=== PATIENT | female | born 1960 | race Caucasian/White ===

== ENCOUNTER 2022-05-25 15:47 | Inpatient (IN) ==
[2022-05-25] MEDS ORDERED: IOPAMIDOL 100 ML BOTTLE IV ONE (15:48)
[2022-05-25] MEDS ORDERED: 0.9 % SODIUM CHLORIDE 1,000 ML IV ONE ×2 (16:16→19:54)
--- NOTE | 2022-05-25 16:16 | Emergency Department Note ---
Nausea/Vomiting/Diarrhea HPI General Chief complaint: Nausea/Vomiting/Diarrhea Stated complaint: Vomiting Time Seen by Provider: 05/25/22 15:49 Source: patient Mode of arrival: ambulatory Limitations: no limitations History of Present Illness HPI Narrative: Narrative: Patient is a 62-year-old female who presents to the emergency department today with complaint of continuation of nausea and vomiting. Patient reports that she had a gastric sleeve surgery a month ago. She recovered from the surgery well. She started to have nausea and vomiting 4 days ago. Patient feels that her nausea and vomiting started after she drinks some "bad coconut milk that was left on the counter last week". She has been seen here in the emergency department on May 22, 2022 as well as May 23, 2022. This is the third visit to the emergency department today. Previous emergency department visits have shown reassuring labs. She had a CT abdomen pelvis scan 2 days ago that did not have any concerning findings. She was given IM Phenergan and had improvement of her symptoms at her last visit to the emergency department and was able to keep down oral fluids. She was discharged home with Phenergan suppositories. Patient reports she has been taking the Phenergan suppositories at home and last dose was approximately 1 hour prior to arrival to the emergency department but she continues to have nausea and occasional vomiting. She has not had any fevers or chills. She describes some mild aching sensation in the e pigastric area. She has not had any cough, chest pain, shortness of breath, or difficulty breathing. She denies any dysuria, urinary frequency, or hesitancy. Related Data Home Medications Medication Instructions Recorded Confirmed omeprazole 20 mg PO DAILY 03/01/19 05/22/22 pen needle, diabetic 31 gauge x #1,200 ea 08/28/20 05/22/22 5/16" (TechLITE Pen Needle) diphenhydramine 25 1 tab PO QHS PRN Pain 04/16/21 05/22/22 mg-acetaminophen 500 mg tablet (Tylenol PM Extra Strength) amlodipine 10 mg tablet 0.5 tab PO BID 05/22/22 05/22/22 apixaban 5 mg tablet (Eliquis) 5 mg PO BID 05/22/22 05/22/22 insulin aspart U-100 100 unit/mL See Protocol subcut TID 05/22/22 05/22/22 (3 mL) subcutaneous pen (Novolog Flexpen U-100 Insulin aspart) insulin glargine 100 unit/mL (3 30 unit subcut BID 05/22/22 05/22/22 mL) subcutaneous pen (Lantus Solostar U-100 Insulin) metoprolol tartrate 50 mg tablet 1 tab PO BID 05/22/22 05/22/22 Previous Rx's Medication Instructions Recorded duloxetine 30 mg capsule,delayed See Rx Instructions .Route 03/01/19 release .COMPLEX #60 caps ondansetron 4 mg disintegrating 4 mg PO Q8H PRN nausea and 05/22/22 tablet vomiting #14 tabs promethazine 25 mg rectal 25 mg KY Q6H PRN nausea and 05/22/22 suppository vomiting #12 ea Allergies Allergy/AdvReac Type Severity Reaction Status Date / Time marijuana (cannabis) AdvReac Nausea Verified 04/20/22 10:06 [marijuana] Paroxetine [From Paxil] AdvReac Shakiness Verified 04/20/22 10:06 Review of Systems ROS ROS Narrative: Narrative: PFSH Narrative Patient History Narrative: Narrative: Medical/Surgical/Family History All Active Problems (Updated 05/25/22 @ 20:28 by CHARLETTE Wiggins) Effusion of knee joint, left (Acute) Nausea & vomiting (Acute) Nausea (Acute) Dehydration (Acute) Obstructive sleep apnea (Chronic) Flank pain (Acute) Diverticulitis (Acute) Abdominal pain (Acute) COPD (chronic obstructive pulmonary disease) (Chronic) Snoring (Chronic) Hypersomnia (Chronic) Anxiety (Acute) Low back pain (Chronic) Acute bacterial sinusitis (Chronic) Increased BMI (Chronic) IBS (irritable bowel syndrome) (Chronic) Bilateral tinnitus (Chronic) Insomnia (Chronic) History of amputation of toe (Chronic) Pain of both hip joints (Chronic ~08/09/20) Pain, joint, shoulder, right (Chronic ~08/09/20) Pain in both feet (Chronic ~08/09/20) 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) Amputated toe (Chronic ~04/18/19) Edema of lower extremity (Chronic ~04/18/19) Osteomyelitis (Chronic ~04/18/19) Plantar fasciitis (Chronic ~04/18/19) Tailors bunion (Chronic ~04/18/19) Lumbar spine pain (Chronic ~04/18/19) Arthropathy (Chronic ~04/18/19) Asthma (Chronic ~04/18/19) Allergic rhinitis (Chronic ~04/18/09) Essential hypertension (Chronic ~04/18/19) 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 (Chronic ~04/18/19) Adjustment disorder with depressed mood (Chronic ~04/18/19) Obesity (Chronic ~04/18/19) Diabetic ketoacidosis (Chronic ~04/18/19) Chronic cough (Chronic) Finger sprain (Chronic) Fibromyalgia (Chronic) Insulin dependent diabetes mellitus (Chronic) Chronic low back pain (Chronic) Neuropathy (Chronic) GERD (gastroesophageal reflux disease) (Chronic ~04/18/19) H/O hysterectomy for benign disease (Chronic) Hx of cholecystectomy (Chronic) Peripheral edema (Chronic) Microscopic hematuria (Chronic) Medical History Acute bacterial sinusitis Adjustment disorder with depressed mood (~04/18/19) Allergic rhinitis (~04/18/09) Amputated toe (~04/18/19) Arthropathy (~04/18/19) Asthma (~04/18/19) Bilateral tinnitus Chronic cough Chronic low back pain COPD (chronic obstructive pulmonary disease) Diabetic ketoacidosis (~04/18/19) Edema of lower extremity (~04/18/19) Essential hypertension (~04/18/19) Fibromyalgia Finger sprain GERD (gastroesophageal reflux disease) (~04/18/19) History of amputation of toe Hypersomnia IBS (irritable bowel syndrome) Increased BMI Insomnia Insulin dependent diabetes mellitus Low back pain Lumbar spine pain (~04/18/19) Microscopic hematuria Multiple complications of type 2 diabetes mellitus (~04/18/19) 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 (~04/18/19) Obesity (~04/18/19) Obstructive sleep apnea Osteomyelitis (~04/18/19) Pain in both feet (~08/09/20) Pain of both hip joints (~08/09/20) Pain, joint, shoulder, right (~08/09/20) Peripheral edema Plantar fasciitis (~04/18/19) Snoring Tailors bunion (~04/18/19) Surgical History History of bilateral cataract extraction History of cervical biopsy History of endometrial ablation History of tonsillectomy History of total abdominal hysterectomy and bilateral salpingo-oophorectomy (~03/22/19) History of tubal ligation Hx of cholecystectomy Family History Other No pertinent family history Social History Smoking Status: Former smoker Alcohol Intake Frequency: a few times a week Substance Use: does not use Exam Narrative Narrative: Narrative: General Limitations: no limitations General appearance: Present alert, in no apparent distress and obese Eye Eye: Present normal appearance; Absent scleral icterus ENT ENT: Present mucous membranes dry; Absent nasal congestion or hoarse voice Neck Neck: Present normal inspection and full ROM; Absent lymphadenopathy Chest Chest: Present symmetric chest wall rise Respiratory Respiratory: Present normal lung sounds bilaterally; Absent respiratory distress, rales/crackles, wheezes or accessory muscle use Cardiovascular Cardiovascular: Present regular rate, normal rhythm and normal heart sounds Adbominal Abdominal: Present soft, tenderness (Mild epigastric tenderness with palpation.) and normal bowel sounds; Absent distention, rebound, mass, pulsatile mass or hernia Extremities Extremities: Present normal inspection, full ROM and normal capillary refill; Absent cyanosis Back Back: Present full ROM; Absent CVA tenderness (R) or CVA tenderness (L) Neurological Neurological: Present alert and oriented X3 Psychiatric Psychiatric: Present normal affect and normal mood Skin Skin: Present warm (WNL), dry and normal color Course Vital Signs Vital signs: Vital Signs Temperature 97.3 F 05/25/22 15:51 Pulse Rate 96 H 05/25/22 15:51 Respiratory Rate 18 05/25/22 15:51 Blood Pressure 147/87 05/25/22 15:51 Pulse Oximetry (%) 100 05/25/22 15:51 Oxygen Delivery Method 05/25/22 15:51 Temperature 97.3 F 05/25/22 15:51 Pulse Rate 82 05/25/22 19:43 Respiratory Rate 18 05/25/22 15:51 Blood Pressure 147/87 05/25/22 15:51 Pulse Oximetry (%) 96 05/25/22 19:43 Oxygen Delivery Method 05/25/22 15:51 [facility] Narrative Medical decision making narrative: Narrative: Patient is a 62-year-old female who returns to the emergency department today with continuation of nausea and vomiting. Her symptoms began 4 days ago and she has been seen here in the emergency department on 2 other occasions and this is her third visit here regarding this issue. She is continuing to have nausea and vomiting despite home use of antiemetics. She has had previous laboratory work- up and including abdominal CT scan with contrast 2 days ago that was rather all reassuring for acute intra-abdominal process. Today IV was started for hydration with IV fluids and patient receiving 1 L normal saline here in the emergency department. Patient had taken promethazine prior to arrival to the emergency department. Patient was given IV diphenhydramine for nausea. This seemed to help her symptoms and after patient receiving IV fluids and the diphenhydramine she was no longer having any pain in the epigastric area. She was having some mild nausea. She did not have any vomiting. Patient's BUN is increased over the last 3 days or 3 days ago was 16 and is now 30. Her ixzyi-ql-wihu creatinine is also increased from 1.03 days ag o to 1.8 today. This is likely related to dehydration. Patient's bovii-jd-jatr glucose is 347. Patient's bicarb normal do not suspect patient having DKA today. Ordered 10 units of IV insulin to be given today for the hyperglycemia. Patient's blood sugar recheck after administration of 10 units of IV insulin today for elevated blood sugar was 157. Patient's oaxwh-mz-srzk troponin minimally elevated at 0.10. Patient is not experiencing any chest pain or dyspnea. Repeat yjevw-pu-akhd troponin today at 1727 is normal at 0.03. Given the patient's acute dehydration with unable to keep down fluid and failed outpatient antiemetic therapy would recommend this patient be considered for hospital admission today for IV fluids for hydration and monitoring of renal function. I was able to speak with hospitalist today at [facility] and spoke with Dr. Floyd who had recommended to contact patient's surgical center who did the gastric sleeve last month to find out if there are any other concerns or imaging that may be necessary to consider for this patient with her symptoms and continuation of the nausea and vomiting. Patient indicates that she had surgery in [facility] with Dr. Hannah. Dr. Floyd also recommended to evaluate with beta hydroxybutyrate and a venous blood gas to ensure there is no findings of DKA. Patient's VBG shows normal pH at 7.39, normal HCO3 at 27.4. Lactic acid today is 2.4. Beta hydroxybutyrate minimally elevated at 0.49. I was able to speak with Malika Henry, RN who is the aftercare surgical supervising nurse for Dr. Hannah. She was available by phone today and she reports that Dr. Hannah is not currently available and is out of the [place]. She would recommend that patient receive IV fluids for hydration and that most likely would not have a leak or problem with surgery given that she has normal vital signs without tachycardia, febrile, or severe abdominal pain. I was able to speak with Dr. Carrera, general surgeon here at [facility]. He is a general surgeon and does not treat bariatric patients and therefore he recommended to consult with bariatric surgeon in [facility] today. Dr. Floyd and Dr. Carrera had both recommended to proceed with oral contrast abdomen pelvis today for further evaluation rather than the IV contrast that was done 2 days ago. The abdomen pelvis CT scan with oral contrast was ordered, however before doing this and proceeding forward with the CT scan today I was able to consult with bariatric surgeon at the [facility] and spoke with Dr. Waddell today. Dr. Waddell felt that the patient would most likely not need the abdomen and pelvis CT scan with oral contrast given that she had a recent IV abdomen contrast CT. He provided reassurance indicating that patients with gastric sl eeve can often become dehydrated that leads to nausea and vomiting. He recommended to admit patient for hydration and most likely this will fix the patient's problem with resolving the dehydration for the patient. He also indicates that malnutrition can also do this for patients with gastric sleeves and to consider potential TPN if patient does not start to have improvement with IV hydration. He also did recommend checking thiamine or treating empirically if there is any consideration of possible malnutrition after the surgery. He did state that there would be nothing surgical to consider at this time given that she does not have any tachycardia, pain, or fever and his most significant concern would be if patient had a leak from the gastric sleeve which without her having the symptoms described above that most likely she does not have this going on. I was able to speak with Dr. Floyd again today and relayed information that the specialist surgeon had recommended not needing the oral CT scan. Dr. Floyd would like to continue to proceed with oral contrast CT scan before consideration of hospital admission today. The CT scan was ordered with oral contrast. A second liter of IV normal saline was ordered today in the emergency department for hydration. She was given 4 mg of ondansetron for nausea and patient is currently in room E2 drinking oral contrast to proceed with the abdomen pelvis CT scan. Due to shift change Dr. Sorenson will assume care at 2029 for this patient. Lab Data Result diagrams: 05/25/22 16:37 Labs: Lab Results 05/25/22 05/25/22 05/25/22 Range/Units 16:36 16:37 16:38 WBC 8.9 (4.5-11.0) K/mcL RBC 5.66 H (3.59-5.38) M/mcL Hgb 14.6 (11.2-15.7) g/dL Hct 45.1 H (34.1-44.9) % POC Hct 48.0 (36-48) MCV 79.7 L (80.0-100.0) fL MCH 25.8 L (26.0-34.0) pg MCHC 32.4 (31.0-36.0) g/dL RDW 15.7 H (11.5-14.5) % Plt Count 262 (140-440) K/mcL MPV 10.3 (8.8-12.5) fL Immature Gran % (Auto) 0.2 (0.0-0.5) % Neut % (Auto) 73.5 (38.0-78.0) % Lymph % (Auto) 20.9 (15.5-49.0) % Gibson % (Auto) 5.1 (1.0-12.0) % Eos % (Auto) 0.1 (0.0-7.0) % Baso % (Auto) 0.2 (0.0-2.0) % Lymph # (Auto) 1.85 (1.50-4.80) K/mcL Gibson # (Auto) 0.45 (0.10-0.90) K/mcL Eos # (Auto) 0.01 (0.00-0.70) K/mcL Baso # (Auto) 0.02 (0.00-0.30) K/mcL Immature Gran # 0.02 (0.00-0.05) K/mcl Absolute Neutrophils 6.51 (1.80-8.00) K/mcL POC VBG pH (7.32-7.42) POC VBG pCO2 at Temp (41-51) POC VBG pO2 (25-40) POC VBG HCO3 (24-28) POC VBG Total CO2 (25-29) POC Venous O2 Sat (40-70) POC VBG Base Excess (-2-2) VBG Lactic Acid (0.5-2) POC Sodium 134 (133-145) POC Potassium 3.2 L (3.3-5.1) POC Chloride 96 (96-108) POC Total CO2 24.0 (22-30) POC BUN 30 H (6-20) POC Creatinine 1.8 H (0.6-1.2) POC Glucose 347 H (70-105) POC WB Ioniz Calcium 1.13 L (1.16-1.32) Total Bilirubin 0.6 (0.1-1.0) mg/dL Direct Bilirubin < 0.2 (0-0.3) mg/dL AST 55 H (<32) U/L ALT 35 (<40) U/L Alkaline Phosphatase 104 (39-117) U/L Total Protein 7.3 (5.9-8.4) gm/dL Albumin 3.7 (3.2-5.2) gm/dL Globulin 3.6 (2.2-3.7) gm/dL Lipase 11 (7-60) U/L Beta-Hydroxybutyrate (<0.27) mmol/L POC Troponin I (0.00-0.08) 05/25/22 05/25/22 05/25/22 Range/Units 16:42 17:27 18:23 WBC (4.5-11.0) K/mcL RBC (3.59-5.38) M/mcL Hgb (11.2-15.7) g/dL Hct (34.1-44.9) % POC Hct (36-48) MCV (80.0-100.0) fL MCH (26.0-34.0) pg MCHC (31.0-36.0) g/dL RDW (11.5-14.5) % Plt Count (140-440) K/mcL MPV (8.8-12.5) fL Immature Gran % (Auto) (0.0-0.5) % Neut % (Auto) (38.0-78.0) % Lymph % (Auto) (15.5-49.0) % Gibson % (Auto) (1.0-12.0) % Eos % (Auto) (0.0-7.0) % Baso % (Auto) (0.0-2.0) % Lymph # (Auto) (1.50-4.80) K/mcL Gibson # (Auto) (0.10-0.90) K/mcL Eos # (Auto) (0.00-0.70) K/mcL Baso # (Auto) (0.00-0.30) K/mcL Immature Gran # (0.00-0.05) K/mcl Absolute Neutrophils (1.80-8.00) K/mcL POC VBG pH (7.32-7.42) POC VBG pCO2 at Temp (41-51) POC VBG pO2 (25-40) POC VBG HCO3 (24-28) POC VBG Total CO2 (25-29) POC Venous O2 Sat (40-70) POC VBG Base Excess (-2-2) VBG Lactic Acid (0.5-2) POC Sodium (133-145) POC Potassium (3.3-5.1) POC Chloride (96-108) POC Total CO2 (22-30) POC BUN (6-20) POC Creatinine (0.6-1.2) POC Glucose (70-105) POC WB Ioniz Calcium (1.16-1.32) Total Bilirubin (0.1-1.0) mg/dL Direct Bilirubin (0-0.3) mg/dL AST (<32) U/L ALT (<40) U/L Alkaline Phosphatase (39-117) U/L Total Protein (5.9-8.4) gm/dL Albumin (3.2-5.2) gm/dL Globulin (2.2-3.7) gm/dL Lipase (7-60) U/L Beta-Hydroxybutyrate 0.49 H (<0.27) mmol/L POC Troponin I 0.10 H 0.03 (0.00-0.08) 05/25/22 Range/Units 18:29 WBC (4.5-11.0) K/mcL RBC (3.59-5.38) M/mcL Hgb (11.2-15.7) g/dL Hct (34.1-44.9) % POC Hct (36-48) MCV (80.0-100.0) fL MCH (26.0-34.0) pg MCHC (31.0-36.0) g/dL RDW (11.5-14.5) % Plt Count (140-440) K/mcL MPV (8.8-12.5) fL Immature Gran % (Auto) (0.0-0.5) % Neut % (Auto) (38.0-78.0) % Lymph % (Auto) (15.5-49.0) % Gibson % (Auto) (1.0-12.0) % Eos % (Auto) (0.0-7.0) % Baso % (Auto) (0.0-2.0) % Lymph # (Auto) (1.50-4.80) K/mcL Gibson # (Auto) (0.10-0.90) K/mcL Eos # (Auto) (0.00-0.70) K/mcL Baso # (Auto) (0.00-0.30) K/mcL Immature Gran # (0.00-0.05) K/mcl Absolute Neutrophils (1.80-8.00) K/mcL POC VBG pH 7.39 (7.32-7.42) POC VBG pCO2 at Temp 44.8 (41-51) POC VBG pO2 22 L (25-40) POC VBG HCO3 27.4 (24-28) POC VBG Total CO2 29.0 (25-29) POC Venous O2 Sat 36.0 L (40-70) POC VBG Base Excess 3.0 H (-2-2) VBG Lactic Acid 2.4 H (0.5-2) POC Sodium (133-145) POC Potassium (3.3-5.1) POC Chloride (96-108) POC Total CO2 (22-30) POC BUN (6-20) POC Creatinine (0.6-1.2) POC Glucose (70-105) POC WB Ioniz Calcium (1.16-1.32) Total Bilirubin (0.1-1.0) mg/dL Direct Bilirubin (0-0.3) mg/dL AST (<32) U/L ALT (<40) U/L Alkaline Phosphatase (39-117) U/L Total Protein (5.9-8.4) gm/dL Albumin (3.2-5.2) gm/dL Globulin (2.2-3.7) gm/dL Lipase (7-60) U/L Beta-Hydroxybutyrate (<0.27) mmol/L POC Troponin I (0.00-0.08) Discharge Plan Patient/Caregiver Discharge Instructions Pt seen by CAND[facility] CUTTER [facility]/PA only: No Clinical Impression: Dehydration, Nausea & vomiting Patient Disposition: Still a Patient Follow up with: Dheeraj Tripp ARNP [Primary Care Provider] - Prescriptions: No Action (DME) pen needle, diabetic [TechLITE Pen Needle] 31 gauge x 5/16" needle See Rx Instructions .ROUTE .MEDSUPPLY Qty: 1200 Rx Instructions: As directed omeprazole 20 mg PO DAILY duloxetine 30 mg capsule,delayed release(DR/EC) See Rx Instructions .ROUTE .COMPLEX Qty: 60 0RF Dose Instruction: 1 cap PO qAM x 7 days, then 2 caps PO qAM thereafter ; Rx Instructions: 1 cap PO qAM x 7 days, then 2 caps PO qAM thereafter diphenhydramine-acetaminophen [Tylenol PM Extra Strength] 25-500 mg tablet 1 tab PO QHS PRN (Reason: Pain) amlodipine 10 mg tablet 0.5 tab PO BID metoprolol tartrate 50 mg tablet 1 tab PO BID insulin aspart U-100 [Novolog Flexpen U-100 Insulin] 100 unit/mL (3 mL) insulin pen See Protocol SUBCUT TID Protocol: Insulin Sliding Scale, Med Condition: HUMALOG/NOVALOG SC SLIDING Dose/Route: SCALE Condition: FSBS < 70 Dose/Route: Give 4 Oz juice, or 15gm oral Instruction: Glucose, or 25ml D50W IV if Dose/Route: unable to take PO. Recheck in Instruction: 15 min and repeat if FSBS < 70 Condition: FSBS 71-140 Dose/Route: NO COVERAGE Condition: FSBS 141-170 Dose/Route: 2 UNITS Condition: FSBS 171-200 Dose/Route: 4 UNITS Condition: FSBS 201-250 Dose/Route: 6 UNITS Condition: FSBS 251-300 Dose/Route: 8 UNITS Condition: FSBS 301-350 Dose/Route: 10 UNITS Condition: FSBS 351-400 Dose/Route: 12 UNITS Condition: FSBS > 400 Dose/Route: 14 UNITS; REPEAT Q2H X2 Instruction: CONTINUE FOLLOWING SLIDING Condition: SCALE; IF STILL > 400; CALL Dose/Route: PHYSICIAN Label Comments: [NO ORIGINAL SIG] insulin glargine [Lantus Solostar U-100 Insulin] 100 unit/mL (3 mL) insulin pen 30 unit subcut BID Eliquis 5 mg Tablet 5 mg PO BID ondansetron 4 mg tablet,disintegrating 4 mg PO Q8H PRN (Reason: nausea and vomiting) Qty: 14 0RF promethazine 25 mg suppository 25 mg KY Q6H PRN (Reason: nausea and vomiting) Qty: 12 0RF
[2022-05-25] MEDS ORDERED: diphenhydrAMINE 50 MG/ML VIAL IV ONE (16:35)
[2022-05-25 16:43] LABS: POC Calcium, Ionized 1.13 (1.16-1.32); POC Creatinine 1.8 (0.6-1.2); POC Potassium 3.2 (3.3-5.1)
[2022-05-25] MEDS ORDERED: INSULIN REGULAR, HUMAN 1 UNIT/0.01 ML UNIT IV ONE (17:06)
[2022-05-25 17:31] LABS: Basophils # (Auto) 0.02 K/mcL (0.00-0.30); Basophils % (Auto) 0.2 % (0.0-2.0); Eosinophils # (Auto) 0.01 K/mcL (0.00-0.70); Eosinophils % (Auto) 0.1 % (0.0-7.0); Hematocrit 45.1 % (34.1-44.9); Hemoglobin 14.6 g/dL (11.2-15.7); Lymphocytes # (Auto) 1.85 K/mcL (1.50-4.80); Lymphocytes % (Auto) 20.9 % (15.5-49.0); Mean Cell Volume 79.7 fL (80.0-100.0); Mean Corpuscular HGB Conc 32.4 g/dL (31.0-36.0); Mean Platelet Volume 10.3 fL (8.8-12.5); Monocytes # (Auto) 0.45 K/mcL (0.10-0.90); Monocytes % (Auto) 5.1 % (1.0-12.0); Neutrophils % (Auto) 73.5 % (38.0-78.0); Platelet Count 262 K/mcL (140-440); RBC 5.66 M/mcL (3.59-5.38); Red Cell Distribution Width 15.7 % (11.5-14.5); WBC 8.9 K/mcL (4.5-11.0)
[2022-05-25 17:43] LABS: ALT/SGPT 35 U/L (<40); AST/SGOT 55 U/L (<32); Albumin 3.7 gm/dL (3.2-5.2); Alkaline Phosphatase 104 U/L (39-117); Bilirubin,Direct < 0.2 mg/dL (0-0.3); Bilirubin,Total 0.6 mg/dL (0.1-1.0); Globulin 3.6 gm/dL (2.2-3.7)
[2022-05-25 19:42] LABS: Beta Hydroxybutyrate 0.49 mmol/L (<0.27)
[2022-05-25] MEDS ORDERED: ONDANSETRON 4 MG/2 ML VIAL IV ONE (19:53)
--- NOTE | 2022-05-25 20:49 | Cat Scan Report ---
INDICATION: N/V Recent gastric sleeve. Assess for leak. COMPARISON: Previous examination dated 05/23/2022 TECHNIQUE: Axial images were obtained through the abdomen and pelvis. Sagittally and coronally reformatted images. 80 mL Isovue 370 injected intravenously. Oral contrast material was given FINDINGS: Lung bases:Negative. No pulmonary parenchymal nodule. No pleural fluid or pericardial fluid Liver:Negative. No focal intrahepatic mass. No focal abnormality. Liver contour is smooth. No evidence for cirrhosis Gallbladder, bilary: Previous cholecystectomy. No dilated bile ducts Spleen:No splenomegaly. Normal enhancement of splenic and portal veins. Pancreas:No pancreatic mass. No peripancreatic abnormality Adrenal glands:Negative Kidneys,ureters,bladder:No solid renal mass. No hydronephrosis. No obstructing or nonobstructing calculi. There are benign renal cysts, unchanged No hydroureter. No ureteral calculus. Urinary bladder is distended. No bladder calculi Gastrointestinal:Patient was only able to drink a small amount of contrast material due to nausea. There is contrast material within the stomach. Patient has undergone prior gastric sleeve procedure. There is no pneumoperitoneum. No contrast extravasation. There is no evidence for anastomotic leak. There is no obstruction Negative small bowel. No mechanical small bowel obstruction. No bowel wall thickening. No focal abnormality. Colon is negative. There is sigmoid diverticulosis. No evidence for diverticulitis. There is some increased contrast within the distal sigmoid and rectal lumen. This patient does not give a history of gastrointestinal hemorrhage and a GI bleed study was not performed. There is no detectable colonic mass. Appendix: The appendix is negative Vascular:Negative abdominal aorta. Superior mesenteric artery and celiac trunk are normal. Normal opacification of the inferior mesenteric artery Lymphatic:No retroperitoneal or mesenteric adenopathy Mesentery, peritoneum: There is no pneumoperitoneum. No intra-abdominal abscess. No free intraperitoneal fluid Reproductive:Previous hysterectomy. No adnexal mass Musculoskeletal:No lumbar compression fractures. Sacrum and pelvis are negative. No hip fracture. There is small umbilical hernia containing only fat IMPRESSION: 1. Previous gastric sleeve procedure. There is no obstruction. There is no leak at the suture line. No pneumoperitoneum or contrast material within the peritoneal space. 2. There is no intra-abdominal abscess 3. Sigmoid diverticulosis. No evidence for diverticulitis. 4. Small umbilical hernia containing only fat 5. Previous cholecystectomy. Previous hysterectomy The exam was performed using radiation dose optimization techniques including, but not limited to, automated exposure control, adjustment of the mA and/or kV according to patient size and use of iterative reconstruction technique. Interpreted and Authenticated by: Napoleon Herman 05/25/22
[2022-05-25] MEDS ORDERED: DEXTROSE 31 GM ORAL.SUSP PO PRN ×2 (20:56→21:58)
[2022-05-25] MEDS ORDERED: DEXTROSE 50% 50 ML VIAL IV PRN ×2 (20:56→21:58)
[2022-05-25] MEDS ORDERED: INSULIN LISPRO 1 UNIT/0.01 ML UNIT SQ SCH (21:00)
--- NOTE | 2022-05-25 21:01 | Internal Med History&Physical ---
HPI History of Present Illness Patient information: Note initiated : 05/25/22 at 8:58 pm Service Date, if different from initiated Date: [] Patient: Ida Jansen a 62 y/o F admitted on for Vomiting. Chief Complaint: [] History of present illness: Ms. Jansen is a 62 year old F Female who presents to the ED with nausea vomiting. Patient had a gastric sleeve surgery in [place] on April 23. She says she was doing well at about 4 days ago which started helping nausea vomiting after she drank some which she said was bad coconut milk. This is her third visit to the ED in 4 days. Patient has been on a pured diet and has been doing relatively well with that occasionally will have a hard time going down but otherwise she has been stable until 4 days ago. She says she left of some coconut water or milk out on the table for a few days and when she drank it it was rancid and it made her nauseous and started vomiting and then since then she had hard time with any liquid. She had a CT abdomen pelvis done but it was was done without oral contrast did not and did not show anything obvious. CT with oral contrast does not show any obstruction or leak at the suture line or pneumoperitoneum. No acute abnormalities. Patient says she is unable to keep down any fluids. She has been taking Phenergan suppositories. She describes some achiness in the epigastric area. ED tried to get a hold of her surgeon in [facility] but he is out of town. Case discussed with bariatric surgeon Dr. Schreiber at [place] who did not see anything concerning and felt that she just needed to be hydrated and that the dehydration is likely causing her nausea vomiting. He states usually just with hydration her symptoms will resolve. She got a DVT after right foot surgery in September Review of Systems: Pertinent positives as above. Denies headache/fever/chills/chest or abdominal pain/cough/dyspnea/diarrhea. Remaining 10 point review of system reviewed negative PFSH PFSH All Active Problems (Updated 05/25/22 @ 20:28 by CHARLETTE Wiggins) Effusion of knee joint, left (Acute) Nausea & vomiting (Acute) Nausea (Acute) Dehydration (Acute) Obstructive sleep apnea (Chronic) Flank pain (Acute) Diverticulitis (Acute) Abdominal pain (Acute) COPD (chronic obstructive pulmonary disease) (Chronic) Snoring (Chronic) Hypersomnia (Chronic) Anxiety (Acute) Low back pain (Chronic) Acute bacterial sinusitis (Chronic) Increased BMI (Chronic) IBS (irritable bowel syndrome) (Chronic) Bilateral tinnitus (Chronic) Insomnia (Chronic) History of amputation of toe (Chronic) Pain of both hip joints (Chronic ~08/09/20) Pain, joint, shoulder, right (Chronic ~08/09/20) Pain in both feet (Chronic ~08/09/20) 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) Amputated toe (Chronic ~04/18/19) Edema of lower extremity (Chronic ~04/18/19) Osteomyelitis (Chronic ~04/18/19) Plantar fasciitis (Chronic ~04/18/19) Tailors bunion (Chronic ~04/18/19) Lumbar spine pain (Chronic ~04/18/19) Arthropathy (Chronic ~04/18/19) Asthma (Chronic ~04/18/19) Allergic rhinitis (Chronic ~04/18/09) Essential hypertension (Chronic ~04/18/19) 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 (Chronic ~04/18/19) Adjustment disorder with depressed mood (Chronic ~04/18/19) Obesity (Chronic ~04/18/19) Diabetic ketoacidosis (Chronic ~04/18/19) Chronic cough (Chronic) Finger sprain (Chronic) Fibromyalgia (Chronic) Insulin dependent diabetes mellitus (Chronic) Chronic low back pain (Chronic) Neuropathy (Chronic) GERD (gastroesophageal reflux disease) (Chronic ~04/18/19) H/O hysterectomy for benign disease (Chronic) Hx of cholecystectomy (Chronic) Peripheral edema (Chronic) Microscopic hematuria (Chronic) Medical History Acute bacterial sinusitis Adjustment disorder with depressed mood (~04/18/19) Allergic rhinitis (~04/18/09) Amputated toe (~04/18/19) Arthropathy (~04/18/19) Asthma (~04/18/19) Bilateral tinnitus Chronic cough Chronic low back pain COPD (chronic obstructive pulmonary disease) Diabetic ketoacidosis (~04/18/19) Edema of lower extremity (~04/18/19) Essential hypertension (~04/18/19) Fibromyalgia Finger sprain GERD (gastroesophageal reflux disease) (~04/18/19) History of amputation of toe Hypersomnia IBS (irritable bowel syndrome) Increased BMI Insomnia Insulin dependent diabetes mellitus Low back pain Lumbar spine pain (~04/18/19) Microscopic hematuria Multiple complications of type 2 diabetes mellitus (~04/18/19) 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 (~04/18/19) Obesity (~04/18/19) Obstructive sleep apnea Osteomyelitis (~04/18/19) Pain in both feet (~08/09/20) Pain of both hip joints (~08/09/20) Pain, joint, shoulder, right (~08/09/20) Peripheral edema Plantar fasciitis (~04/18/19) Snoring Tailors bunion (~04/18/19) Surgical History History of bilateral cataract extraction History of cervical biopsy History of endometrial ablation History of tonsillectomy History of total abdominal hysterectomy and bilateral salpingo-oophorectomy (~03/22/19) History of tubal ligation Hx of cholecystectomy Family History Other No pertinent family history Social History occupational status: 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 sexually active: No physical activity: none smoking status: Former smoker quit date: 06/22/97 alcohol intake frequency: a few times a week substance use type: does not use seatbelt use: always working smoke detector in home: Yes firearms in home: Yes MEDS/ALLERGIES Home Medications and Allergies Home Medications Medication Instructions Recorded Confirmed Type duloxetine 30 mg capsule,delayed See Rx Instructions .Route 03/01/19 05/22/22 Rx release .COMPLEX #60 caps omeprazole 20 mg PO DAILY 03/01/19 05/22/22 History pen needle, diabetic 31 gauge x #1,200 ea 08/28/20 05/22/22 History 5/16" (TechLITE Pen Needle) diphenhydramine 25 1 tab PO QHS PRN Pain 04/16/21 05/22/22 History mg-acetaminophen 500 mg tablet (Tylenol PM Extra Strength) amlodipine 10 mg tablet 0.5 tab PO BID 05/22/22 05/22/22 History apixaban 5 mg tablet (Eliquis) 5 mg PO BID 05/22/22 05/22/22 History insulin aspart U-100 100 unit/mL See Protocol subcut TID 05/22/22 05/22/22 History (3 mL) subcutaneous pen (Novolog Flexpen U-100 Insulin aspart) insulin glargine 100 unit/mL (3 30 unit subcut BID 05/22/22 05/22/22 History mL) subcutaneous pen (Lantus Solostar U-100 Insulin) metoprolol tartrate 50 mg tablet 1 tab PO BID 05/22/22 05/22/22 History ondansetron 4 mg disintegrating 4 mg PO Q8H PRN nausea and 05/22/22 Rx tablet vomiting #14 tabs promethazine 25 mg rectal 25 mg NH Q6H PRN nausea and 05/22/22 Rx suppository vomiting #12 ea Allergies Allergy/AdvReac Type Severity Reaction Status Date / Time marijuana (cannabis) AdvReac Nausea Verified 04/20/22 10:06 [marijuana] Paroxetine [From Paxil] AdvReac Shakiness Verified 04/20/22 10:06 EXAM Constitutional Vitals: Temp Pulse Resp BP Pulse Ox O2 Del Method 97.3 F 87 18 211/77 100 05/25/22 15:51 05/25/22 20:56 05/25/22 15:51 05/25/22 20:56 05/25/22 20:56 05/25/22 20:56 Exam: General: Alert, Awake, No acute Distress, obese Eyes/N/T: EOMI, PERRL, MM Head/Neck: neck supple, normocephalic atraumatic CV: RRR, No murmurs, normal s1/s2 Pulm: Clear b/l, no wheezing/rhonchi/rales Abd: soft, nontender, +BS x4 Ext: no clubbing/cyanosis, mild b/l LE edema Neuro: Alert, no focal deficits, moves all extremities, CN 2-12 grossly intact, sensations intact b/l upper/lower Skin: warm/dry DATA Data Completed and Pending Labs: Labs from last 24 hours 05/25/22 05/25/22 05/25/22 19:55 18:29 18:23 WBC RBC Hgb Hct POC Hct MCV MCH MCHC RDW Plt Count MPV Immature Gran % (Auto) Neut % (Auto) Lymph % (Auto) Latimer % (Auto) Eos % (Auto) Baso % (Auto) Lymph # (Auto) Latimer # (Auto) Eos # (Auto) Baso # (Auto) Immature Gran # Absolute Neutrophils POC VBG pH 7.39 POC VBG pCO2 at Temp 44.8 POC VBG pO2 22 L POC VBG HCO3 27.4 POC VBG Total CO2 29.0 POC Venous O2 Sat 36.0 L POC VBG Base Excess 3.0 H VBG Lactic Acid 2.4 H POC Sodium POC Potassium POC Chloride POC Total CO2 POC BUN POC Creatinine POC Glucose POC WB Ioniz Calcium Total Bilirubin Direct Bilirubin AST ALT Alkaline Phosphatase Total Protein Albumin Globulin Lipase Vitamin B1 Pending Beta-Hydroxybutyrate 0.49 H POC Troponin I 05/25/22 05/25/22 05/25/22 17:27 16:42 16:38 WBC RBC Hgb Hct POC Hct 48.0 MCV MCH MCHC RDW Plt Count MPV Immature Gran % (Auto) Neut % (Auto) Lymph % (Auto) Latimer % (Auto) Eos % (Auto) Baso % (Auto) Lymph # (Auto) Latimer # (Auto) Eos # (Auto) Baso # (Auto) Immature Gran # Absolute Neutrophils POC VBG pH POC VBG pCO2 at Temp POC VBG pO2 POC VBG HCO3 POC VBG Total CO2 POC Venous O2 Sat POC VBG Base Excess VBG Lactic Acid POC Sodium 134 POC Potassium 3.2 L POC Chloride 96 POC Total CO2 24.0 POC BUN 30 H POC Creatinine 1.8 H POC Glucose 347 H POC WB Ioniz Calcium 1.13 L Total Bilirubin Direct Bilirubin AST ALT Alkaline Phosphatase Total Protein Albumin Globulin Lipase Vitamin B1 Beta-Hydroxybutyrate POC Troponin I 0.03 0.10 H 05/25/22 05/25/22 16:37 16:36 WBC 8.9 RBC 5.66 H Hgb 14.6 Hct 45.1 H POC Hct MCV 79.7 L MCH 25.8 L MCHC 32.4 RDW 15.7 H Plt Count 262 MPV 10.3 Immature Gran % (Auto) 0.2 Neut % (Auto) 73.5 Lymph % (Auto) 20.9 Latimer % (Auto) 5.1 Eos % (Auto) 0.1 Baso % (Auto) 0.2 Lymph # (Auto) 1.85 Latimer # (Auto) 0.45 Eos # (Auto) 0.01 Baso # (Auto) 0.02 Immature Gran # 0.02 Absolute Neutrophils 6.51 POC VBG pH POC VBG pCO2 at Temp POC VBG pO2 POC VBG HCO3 POC VBG Total CO2 POC Venous O2 Sat POC VBG Base Excess VBG Lactic Acid POC Sodium POC Potassium POC Chloride POC Total CO2 POC BUN POC Creatinine POC Glucose POC WB Ioniz Calcium Total Bilirubin 0.6 Direct Bilirubin < 0.2 AST 55 H ALT 35 Alkaline Phosphatase 104 Total Protein 7.3 Albumin 3.7 Globulin 3.6 Lipase 11 Vitamin B1 Beta-Hydroxybutyrate POC Troponin I A/P Narrative A/P Narrative: A: *Intractable nausea /vomiting: -ct a/p no acute path at sleeve site or other *Recent gastric sleeve in [place] Apr 2: *Morbid obesity: *MARILYN: *Volume depletion w/hyperlactatemia: *Fasting ketosis: *Hypokalemia: *DM w/neuropathy: Hyperglycemic in ED *HTN: Elevated in ED *COLE: on cpap *GERD: *h/o DVT: on eliquis P: -Antiemetics -IVF, npo -f/u lactate -Follow-up renal function, monitor I's and O's -cont home norvasc/bb, monitor BP -SSI -home cpap -Home medication reconciliation -pt/ot -ppx: Home apixaban / home PPI Time Spent With Patient Time: Total time spent is greater than 50% in coordination of care (as documented) at patient's floor/unit and/or counseling patient: Total time spent with greater than 50% in coordination of care (as documented) at patient's floor/unit and/or counseling patient:: Greater than 70 minutes
[2022-05-25] MEDS ORDERED: LABETALOL 5 MG/ML ML IV ONE (21:25)
--- NOTE | 2022-05-25 21:38 | Emergency Department Note ---
Course Course Course Narrative: I assumed care of patient at [address] abdomen pelvis with contrast orally. Please refer to nurse practitioner Sean's note for care up to this point. CT on pelvis obtained with image reviewed myself, no obvious gastric leak from surgical site. Patient has been admitted by the hospitalist. Vital Signs Vital signs: Vital Signs Temperature 97.3 F 05/25/22 15:51 Pulse Rate 96 H 05/25/22 15:51 Respiratory Rate 18 05/25/22 15:51 Blood Pressure 147/87 05/25/22 15:51 Pulse Oximetry (%) 100 05/25/22 15:51 Oxygen Delivery Method 05/25/22 15:51 Temperature 97.3 F 05/25/22 15:51 Pulse Rate 85 05/25/22 21:01 Respiratory Rate 18 05/25/22 15:51 Blood Pressure 211/77 05/25/22 21:01 Pulse Oximetry (%) 99 05/25/22 21:01 Oxygen Delivery Method 05/25/22 20:56 MDM MDM Narrative Medical decision making narrative: Narrative: Differential Diagnosis Differential Diagnosis: Abdominal pain, dehydration Medical Records Medical records reviewed: Yes I reviewed the patient's medical records. Lab Data Lab results reviewed: Yes I reviewed the patient's lab results. Result diagrams: 05/25/22 16:37 Labs: Lab Results 05/25/22 05/25/22 05/25/22 Range/Units 16:36 16:37 16:38 WBC 8.9 (4.5-11.0) K/mcL RBC 5.66 H (3.59-5.38) M/mcL Hgb 14.6 (11.2-15.7) g/dL Hct 45.1 H (34.1-44.9) % POC Hct 48.0 (36-48) MCV 79.7 L (80.0-100.0) fL MCH 25.8 L (26.0-34.0) pg MCHC 32.4 (31.0-36.0) g/dL RDW 15.7 H (11.5-14.5) % Plt Count 262 (140-440) K/mcL MPV 10.3 (8.8-12.5) fL Immature Gran % (Auto) 0.2 (0.0-0.5) % Neut % (Auto) 73.5 (38.0-78.0) % Lymph % (Auto) 20.9 (15.5-49.0) % Pike % (Auto) 5.1 (1.0-12.0) % Eos % (Auto) 0.1 (0.0-7.0) % Baso % (Auto) 0.2 (0.0-2.0) % Lymph # (Auto) 1.85 (1.50-4.80) K/mcL Pike # (Auto) 0.45 (0.10-0.90) K/mcL Eos # (Auto) 0.01 (0.00-0.70) K/mcL Baso # (Auto) 0.02 (0.00-0.30) K/mcL Immature Gran # 0.02 (0.00-0.05) K/mcl Absolute Neutrophils 6.51 (1.80-8.00) K/mcL POC VBG pH (7.32-7.42) POC VBG pCO2 at Temp (41-51) POC VBG pO2 (25-40) POC VBG HCO3 (24-28) POC VBG Total CO2 (25-29) POC Venous O2 Sat (40-70) POC VBG Base Excess (-2-2) VBG Lactic Acid (0.5-2) POC Sodium 134 (133-145) POC Potassium 3.2 L (3.3-5.1) POC Chloride 96 (96-108) POC Total CO2 24.0 (22-30) POC BUN 30 H (6-20) POC Creatinine 1.8 H (0.6-1.2) POC Glucose 347 H (70-105) POC WB Ioniz Calcium 1.13 L (1.16-1.32) Total Bilirubin 0.6 (0.1-1.0) mg/dL Direct Bilirubin < 0.2 (0-0.3) mg/dL AST 55 H (<32) U/L ALT 35 (<40) U/L Alkaline Phosphatase 104 (39-117) U/L Total Protein 7.3 (5.9-8.4) gm/dL Albumin 3.7 (3.2-5.2) gm/dL Globulin 3.6 (2.2-3.7) gm/dL Lipase 11 (7-60) U/L Beta-Hydroxybutyrate (<0.27) mmol/L POC Troponin I (0.00-0.08) 05/25/22 05/25/22 05/25/22 Range/Units 16:42 17:27 18:23 WBC (4.5-11.0) K/mcL RBC (3.59-5.38) M/mcL Hgb (11.2-15.7) g/dL Hct (34.1-44.9) % POC Hct (36-48) MCV (80.0-100.0) fL MCH (26.0-34.0) pg MCHC (31.0-36.0) g/dL RDW (11.5-14.5) % Plt Count (140-440) K/mcL MPV (8.8-12.5) fL Immature Gran % (Auto) (0.0-0.5) % Neut % (Auto) (38.0-78.0) % Lymph % (Auto) (15.5-49.0) % Pike % (Auto) (1.0-12.0) % Eos % (Auto) (0.0-7.0) % Baso % (Auto) (0.0-2.0) % Lymph # (Auto) (1.50-4.80) K/mcL Pike # (Auto) (0.10-0.90) K/mcL Eos # (Auto) (0.00-0.70) K/mcL Baso # (Auto) (0.00-0.30) K/mcL Immature Gran # (0.00-0.05) K/mcl Absolute Neutrophils (1.80-8.00) K/mcL POC VBG pH (7.32-7.42) POC VBG pCO2 at Temp (41-51) POC VBG pO2 (25-40) POC VBG HCO3 (24-28) POC VBG Total CO2 (25-29) POC Venous O2 Sat (40-70) POC VBG Base Excess (-2-2) VBG Lactic Acid (0.5-2) POC Sodium (133-145) POC Potassium (3.3-5.1) POC Chloride (96-108) POC Total CO2 (22-30) POC BUN (6-20) POC Creatinine (0.6-1.2) POC Glucose (70-105) POC WB Ioniz Calcium (1.16-1.32) Total Bilirubin (0.1-1.0) mg/dL Direct Bilirubin (0-0.3) mg/dL AST (<32) U/L ALT (<40) U/L Alkaline Phosphatase (39-117) U/L Total Protein (5.9-8.4) gm/dL Albumin (3.2-5.2) gm/dL Globulin (2.2-3.7) gm/dL Lipase (7-60) U/L Beta-Hydroxybutyrate 0.49 H (<0.27) mmol/L POC Troponin I 0.10 H 0.03 (0.00-0.08) 05/25/22 Range/Units 18:29 WBC (4.5-11.0) K/mcL RBC (3.59-5.38) M/mcL Hgb (11.2-15.7) g/dL Hct (34.1-44.9) % POC Hct (36-48) MCV (80.0-100.0) fL MCH (26.0-34.0) pg MCHC (31.0-36.0) g/dL RDW (11.5-14.5) % Plt Count (140-440) K/mcL MPV (8.8-12.5) fL Immature Gran % (Auto) (0.0-0.5) % Neut % (Auto) (38.0-78.0) % Lymph % (Auto) (15.5-49.0) % Pike % (Auto) (1.0-12.0) % Eos % (Auto) (0.0-7.0) % Baso % (Auto) (0.0-2.0) % Lymph # (Auto) (1.50-4.80) K/mcL Pike # (Auto) (0.10-0.90) K/mcL Eos # (Auto) (0.00-0.70) K/mcL Baso # (Auto) (0.00-0.30) K/mcL Immature Gran # (0.00-0.05) K/mcl Absolute Neutrophils (1.80-8.00) K/mcL POC VBG pH 7.39 (7.32-7.42) POC VBG pCO2 at Temp 44.8 (41-51) POC VBG pO2 22 L (25-40) POC VBG HCO3 27.4 (24-28) POC VBG Total CO2 29.0 (25-29) POC Venous O2 Sat 36.0 L (40-70) POC VBG Base Excess 3.0 H (-2-2) VBG Lactic Acid 2.4 H (0.5-2) POC Sodium (133-145) POC Potassium (3.3-5.1) POC Chloride (96-108) POC Total CO2 (22-30) POC BUN (6-20) POC Creatinine (0.6-1.2) POC Glucose (70-105) POC WB Ioniz Calcium (1.16-1.32) Total Bilirubin (0.1-1.0) mg/dL Direct Bilirubin (0-0.3) mg/dL AST (<32) U/L ALT (<40) U/L Alkaline Phosphatase (39-117) U/L Total Protein (5.9-8.4) gm/dL Albumin (3.2-5.2) gm/dL Globulin (2.2-3.7) gm/dL Lipase (7-60) U/L Beta-Hydroxybutyrate (<0.27) mmol/L POC Troponin I (0.00-0.08) Radiology Data Radiology results reviewed: Yes I reviewed the patient's radiology results. Radiology results narrative: CT abdomen pelvis obtained, agree with radiologist interpretation Core Measures AMI Core Measures Followed: Yes Discharge Plan Patient/Caregiver Discharge Instructions Pt seen by MATERIALS ASSISTANT/PA only: No Clinical Impression: Dehydration, Nausea & vomiting Patient Disposition: Xfer As Outpt/Obs ([facility]) Condition: Good Follow up with: Dheeraj Tripp ARNP [Primary Care Provider] - Prescriptions: No Action (DME) pen needle, diabetic [TechLITE Pen Needle] 31 gauge x 5/16" needle See Rx Instructions .ROUTE .MEDSUPPLY Qty: 1200 Rx Instructions: As directed omeprazole 20 mg PO DAILY duloxetine 30 mg capsule,delayed release(DR/EC) See Rx Instructions .ROUTE .COMPLEX Qty: 60 0RF Dose Instruction: 1 cap PO qAM x 7 days, then 2 caps PO qAM thereafter ; Rx Instructions: 1 cap PO qAM x 7 days, then 2 caps PO qAM thereafter diphenhydramine-acetaminophen [Tylenol PM Extra Strength] 25-500 mg tablet 1 tab PO QHS PRN (Reason: Pain) amlodipine 10 mg tablet 0.5 tab PO BID metoprolol tartrate 50 mg tablet 1 tab PO BID insulin aspart U-100 [Novolog Flexpen U-100 Insulin] 100 unit/mL (3 mL) insulin pen See Protocol SUBCUT TID Protocol: Insulin Sliding Scale, Med Condition: HUMALOG/NOVALOG SC SLIDING Dose/Route: SCALE Condition: FSBS < 70 Dose/Route: Give 4 Oz juice, or 15gm oral Instruction: Glucose, or 25ml D50W IV if Dose/Route: unable to take PO. Recheck in Instruction: 15 min and repeat if FSBS < 70 Condition: FSBS 71-140 Dose/Route: NO COVERAGE Condition: FSBS 141-170 Dose/Route: 2 UNITS Condition: FSBS 171-200 Dose/Route: 4 UNITS Condition: FSBS 201-250 Dose/Route: 6 UNITS Condition: FSBS 251-300 Dose/Route: 8 UNITS Condition: FSBS 301-350 Dose/Route: 10 UNITS Condition: FSBS 351-400 Dose/Route: 12 UNITS Condition: FSBS > 400 Dose/Route: 14 UNITS; REPEAT Q2H X2 Instruction: CONTINUE FOLLOWING SLIDING Condition: SCALE; IF STILL > 400; CALL Dose/Route: PHYSICIAN Label Comments: [NO ORIGINAL SIG] insulin glargine [Lantus Solostar U-100 Insulin] 100 unit/mL (3 mL) insulin pen 30 unit subcut BID Eliquis 5 mg Tablet 5 mg PO BID ondansetron 4 mg tablet,disintegrating 4 mg PO Q8H PRN (Reason: nausea and vomiting) Qty: 14 0RF promethazine 25 mg suppository 25 mg NH Q6H PRN (Reason: nausea and vomiting) Qty: 12 0RF
[2022-05-25 21:47] LABS: Phosphorous 2.5 mg/dL (2.5-4.5)
[2022-05-25] MEDS ORDERED: LORazepam 2 MG/ML VIAL IV PRN (21:58)
[2022-05-25] MEDS ORDERED: POTASSIUM CHLORIDE 20 MEQ in DEXTROSE 5% IN WATER 250 ML IV ONE (21:58)
[2022-05-25] MEDS ORDERED: POTASSIUM CHLORIDE 40 MEQ in DEXTROSE 5% IN WATER 500 ML IV PRN (21:58)
[2022-05-25] MEDS ORDERED: MAGNESIUM SULFATE 2 GM/50 ML BAG IV PRN (21:58)
[2022-05-25] MEDS ORDERED: POLYETHYLENE GLYCOL 3350 17 GM PACKET PO PRN (21:58)
[2022-05-25] MEDS ORDERED: morphine 4 MG/ML VIAL IV PRN (21:58)
[2022-05-25] MEDS ORDERED: POTASSIUM CHLORIDE 20 MEQ TABLET PO PRN ×2 (21:58)
[2022-05-25] MEDS ORDERED: IPRATROPIUM/ALBUTEROL 3 ML AMPUL.NEB NEB PRN (21:58)
[2022-05-25] MEDS ORDERED: ACETAMINOPHEN 325 MG TABLET PO PRN (21:58)
[2022-05-25 21:59] LABS: Appearance,Urine CLEAR (Clear); Bacteria,Urine Few /hpf (0); Bilirubin,Urine Negative (Negative); Color,Urine YELLOW; Culture Indicated,Urine yes; Glucose,Urine (UA) 500 mg/dL (Negative); Ketones,Urine 15 mg/dL (Negative); Leukocyte Esterase,Urine NEGATIVE /uL (Negative); Mucus,Urine Few /hpf; Nitrate,Urine NEGATIVE (Negative); Protein,Urine >=300 mg/dL (Negative); Specific Gravity,Urine 1.025 (1.000-1.035); Urine Blood MODERATE ery/mcL (Negative); Urine Hyaline Cast 3 /lph (0-2); Urine RBC 0 /hpf (0-3); Urine Squamous Epithelial Cell 3 /hpf (0-4); Urine WBC 12 /hpf (0-4); Urobilinogen,Urine Normal
[2022-05-25] MEDS ORDERED: THIAMINE 100 MG/ML VIAL ONE (22:23)
[2022-05-25] MEDS: THIAMINE 100 MG in 0.9 % SODIUM CHLORIDE 50 ML IV SCH (22:28)
[2022-05-25] MEDS: hydrALAZINE 20 MG/ML VIAL IV PRN (22:45)
[2022-05-25] MEDS: 0.9 % SODIUM CHLORIDE 10 ML SYRINGE IV SCH (22:46)
[2022-05-25] MEDS: INSULIN LISPRO 1 UNIT/0.01 ML UNIT SQ SCH (23:10)
[2022-05-25] MEDS: SCOPOLAMINE 1 PATCH PATCH TOPICAL SCH (23:24)
[2022-05-25] MEDS: POTASSIUM CHLORIDE 20 MEQ in 0.9 % SODIUM CHLORIDE 1,000 ML IV SCH (23:25)
[2022-05-26] MEDS: PROMETHAZINE 25 MG/ML VIAL IV PRN (00:02)
[2022-05-26] MEDS: INSULIN LISPRO 1 UNIT/0.01 ML UNIT SQ SCH ×4 (04:07→16:54)
[2022-05-26] MEDS: hydrALAZINE 20 MG/ML VIAL IV PRN ×3 (04:07→16:00)
[2022-05-26] MEDS: 0.9 % SODIUM CHLORIDE 10 ML SYRINGE IV SCH ×3 (04:09→22:17)
[2022-05-26] MEDS: ONDANSETRON 4 MG/2 ML VIAL IV PRN ×2 (04:26→12:40)
[2022-05-26] MEDS: PROCHLORPERAZINE 10 MG/2 ML VIAL IV PRN (06:44)
--- NOTE | 2022-05-26 07:33 | Internal Med Progress Note ---
SUBJECTIVE Subjective Patient information: Note initiated : 05/26/22 at 7:29 am Service Date, if different from initiated Date: [] Patient: Ida Jansen 62 y/o F admitted on 05/25/22 for Vomiting. Chief Complaint: [] Interval history: History of present illness: Ms. Jansen is a 62 year old F Female who presents to the ED with nausea vomiting. Patient had a gastric sleeve surgery in [place] on April 23. She says she was doing well at about 4 days ago which started helping nausea vomiting after she drank some which she said was bad coconut milk. This is her third visit to the ED in 4 days. Patient has been on a pured diet and has been doing relatively well with that occasionally will have a hard time going down but otherwise she has been stable until 4 days ago. She says she left of some coconut water or milk out on the ta ble for a few days and when she drank it it was rancid and it made her nauseous and started vomiting and then since then she had hard time with any liquid. She had a CT abdomen pelvis done but it was was done without oral contrast did not and did not show anything obvious. CT with oral contrast does not show any obstruction or leak at the suture line or pneumoperitoneum. No acute abnormalities. Patient says she is unable to keep down any fluids. She has been taking Phenergan suppositories. She describes some achiness in the epigastric area. ED tried to get a hold of her surgeon in [facility] but he is out of town. Case discussed with bariatric surgeon Dr. Schreiber at [place] who did not see anything concerning and felt that she just needed to be hydrated and that the dehydration is likely causing her nausea vomiting. He states usually just with hydration her symptoms will resolve. She got a DVT after right foot surgery in October 01 Patient still having nausea vomiting we will keep sips and chips only and hopefully can transition to clears tomorrow. Continue IV fluid. Hypokalemia noted. Creatinine improving. Review of Systems: denies headache/fever/chills/chest or abdominal pain/cough/dyspnea/diarrhea. Otherwise see above. Constitutional Vitals: Vital Signs Temp Pulse Resp BP Pulse Ox O2 Del Method 98.3 F 77 16 156/78 98 05/26/22 07:00 05/26/22 07:00 05/26/22 07:00 05/26/22 07:00 05/26/22 07:00 05/26/22 07:00 Period Temp Pulse Resp BP Sys/Jett Pulse Ox O2 Del Method O2 Flow Rate Last 24 Hr 97.3 F-98.8 F 71-96 16-18 139-211/56-87 96-100 Room Air-Room Air Intake and Output 05/25/22 05/26/22 05/26/22 19:59 03:59 11:59 Intake Total 51 Output Total 200 Balance -149 Weight 117.48 kg 120.202 kg Intake & Output: Intake & Output 05/25/22 05/26/22 05/26/22 19:59 03:59 11:59 Intake Total 51 Output Total 200 Balance -149 Weight 117.48 kg 120.202 kg Intake: IV 51 Vitamin B1 100 mg In Sodium 51 Chloride 0.9% 50 ml @ 50 mls/hr IV DAILY [facility] Rx#:[id number] Output: Void Amount 200 Exam: General: Alert, Awake, No acute Distress, obese Eyes/N/T: EOMI, Head/Neck: neck supple, CV: RRR, No murmurs, Pulm: Clear b/l, no wheezing/rhonchi/rales Abd: soft, nontender, +BS x4 Ext: no clubbing/cyanosis, mild b/l LE edema Neuro: Alert, no focal deficits, moves all extremities, Skin: warm/dry OBJ DATA Labs CBC & Chem 7: 05/25/22 16:37 05/26/22 05:56 Labs: Abnormal Lab Results 05/25/22 05/25/22 05/25/22 20:44 18:29 18:23 RBC Hct MCV MCH RDW POC VBG pO2 22 L POC Venous O2 Sat 36.0 L POC VBG Base Excess 3.0 H VBG Lactic Acid 2.4 H POC Potassium POC BUN POC Creatinine POC Glucose POC WB Ioniz Calcium AST Beta-Hydroxybutyrate 0.49 H Urine Protein >=300 A Urine Glucose (UA) 500 A Urine Ketones 15 A Urine Occult Blood Moderate A Urine WBC 12 H Urine Bacteria Few A Hyaline Casts 3 H Urine Mucus Few A POC Troponin I 05/25/22 05/25/22 05/25/22 16:42 16:38 16:37 RBC 5.66 H Hct 45.1 H MCV 79.7 L MCH 25.8 L RDW 15.7 H POC VBG pO2 POC Venous O2 Sat POC VBG Base Excess VBG Lactic Acid POC Potassium 3.2 L POC BUN 30 H POC Creatinine 1.8 H POC Glucose 347 H POC WB Ioniz Calcium 1.13 L AST Beta-Hydroxybutyrate Urine Protein Urine Glucose (UA) Urine Ketones Urine Occult Blood Urine WBC Urine Bacteria Hyaline Casts Urine Mucus POC Troponin I 0.10 H 05/25/22 16:36 RBC Hct MCV MCH RDW POC VBG pO2 POC Venous O2 Sat POC VBG Base Excess VBG Lactic Acid POC Potassium POC BUN POC Creatinine POC Glucose POC WB Ioniz Calcium AST 55 H Beta-Hydroxybutyrate Urine Protein Urine Glucose (UA) Urine Ketones Urine Occult Blood Urine WBC Urine Bacteria Hyaline Casts Urine Mucus POC Troponin I Meds: Medications Acetaminophen (Acetaminophen 325 Mg Tablet) 650 mg PO Q6HP PRN; Protocol PRN Reason: Per Pain Protocol/Fever > 101 Albuterol/Ipratropium (Ipratropium/Albuterol 3 Ml Ampul.Neb) 3 ml NEB Q4HP PRN PRN Reason: Shortness Of Breath Dextrose (Dextrose 50% 50 Ml Vial) 0 ml IV UD PRN PRN Reason: Per Sliding Scale Diagnostic Test (Pha) (Accu-Chek 1 Each Strip) 1 each FS Q4 [facility] Last Admin: 05/26/22 03:47 Dose: 1 each Glucose (Dextrose 31 Gm Oral.Susp) 15 gm PO PRN PRN PRN Reason: Hypoglycemia Hydralazine HCl (Hydralazine 20 Mg/Ml Vial) 0 mg IV Q2HP PRN PRN Reason: Hypertension Last Admin: 05/26/22 04:07 Dose: 10 mg Thiamine HCl 100 mg/ Sodium (Chloride) 51 mls @ 50 mls/hr IV DAILY [facility] Stop: 05/29/22 10:02 Last Infusion: 05/25/22 23:34 Dose: Infused Potassium Chloride 40 meq/ (Dextrose) 520 mls @ 130 mls/hr IV UD PRN PRN Reason: Potassium < 3 Magnesium Sulfate (Magnesium Sulfate) 2 gm in 50 mls @ 50 mls/hr IV UD PRN PRN Reason: Magnesium </= 1.6 Potassium Chloride 20 meq/ (Sodium Chloride) 1,010 mls @ 125 mls/hr IV .Q8H5M [facility] Last Admin: 05/25/22 23:25 Dose: 125 mls/hr Insulin Human Lispro (Insulin Lispro 1 Unit/0.01 Ml Unit) 0 unit SQ Q4 [facility]; Protocol Last Admin: 05/26/22 04:07 Dose: 2 units Labetalol HCl (Labetalol 5 Mg/Ml Ml) 0 mg IV Q2HP PRN PRN Reason: Hypertension Lorazepam (Lorazepam 2 Mg/Ml Vial) 0.5 mg IV Q6HP PRN PRN Reason: Nausea Morphine Sulfate (Morphine 4 Mg/Ml Vial) 0 mg IV Q3HP PRN PRN Reason: Pain Ondansetron HCl (Ondansetron 4 Mg/2 Ml Vial) 4 mg IV Q4HP PRN PRN Reason: Nausea And Vomiting Last Admin: 05/26/22 04:26 Dose: 4 mg Polyethylene Glycol (Polyethylene Glycol 3350 17 Gm Packet) 17 gm PO DAILYP PRN PRN Reason: Constipation Potassium Chloride (Potassium Chloride 20 Meq Tablet) 40 meq PO UD PRN PRN Reason: Potssium is 3-3.5 Potassium Chloride (Potassium Chloride 20 Meq Tablet) 40 meq PO UD PRN PRN Reason: Potassium < 3 Prochlorperazine (Prochlorperazine 10 Mg/2 Ml Vial) 10 mg IV Q6HP PRN PRN Reason: Nausea And Vomiting Last Admin: 05/26/22 06:44 Dose: 10 mg Promethazine HCl (Promethazine 25 Mg/Ml Vial) 12.5 mg IV Q6HP PRN PRN Reason: Nausea And Vomiting Last Admin: 05/26/22 00:02 Dose: 12.5 mg Scopolamine (Scopolamine 1 Patch Patch) 1 patch TOPICAL Q72H [facility] Last Admin: 05/25/22 23:24 Dose: 1 patch Sodium Chloride (0.9 % Sodium Chloride 10 Ml Syringe) 10 ml IV Q8 [facility] Last Admin: 05/26/22 04:09 Dose: Not Given A/P Narrative A/P Narrative: A: *Intractable nausea /vomiting: -ct a/p no acute path at sleeve site or other *Recent gastric sleeve in [place] Apr 2: *Morbid obesity: *MARILYN: *Volume depletion w/hyperlactatemia, Hemoconcentrated: *Fasting ketosis: *Hypokalemia: *DM w/neuropathy: Hyperglycemic in ED -a1c 9.2 *HTN: Elevated in ED *COLE: on cpap *GERD: *h/o DVT: on eliquis P: -Antiemetics -IVF, npo except sips/chips and meds -Follow-up renal function, monitor I's and O's -cont home norvasc/bb, monitor BP -SSI -home cpap -pt/ot -ppx: Home apixaban / home PPI Time Spent With Patient Time: Total time spent is greater than 50% in coordination of care (as documented) at patient's floor/unit and/or counseling patient: Total time spent with greater than 50% in coordination of care (as documented) at patient's floor/unit and/or counseling patient:: 35 - 50 minutes
[2022-05-26 07:38] LABS: Estimated Average Glucose(eAG) 217 mg/dL; Hemoglobin A1C 9.2 % Hgb (4.0-6.0)
[2022-05-26] MEDS ORDERED: PROMETHAZINE 25 MG SUPP.RECT PR PRN (07:43)
[2022-05-26 07:47] LABS: ALT/SGPT 27 U/L (<40); AST/SGOT 36 U/L (<32); Albumin 3.1 gm/dL (3.2-5.2); Alkaline Phosphatase 85 U/L (39-117); Bilirubin,Direct < 0.2 mg/dL (0-0.3); Bilirubin,Total 0.5 mg/dL (0.1-1.0); Blood Urea Nitrogen 22 mg/dL (8-23); Calcium 8.7 mg/dL (8.6-10.4); Carbon Dioxide 23 mmol/L (22-30); Chloride 102 mmol/L (96-108); Globulin 3.1 gm/dL (2.2-3.7); Glomerular Filtration Rate 44; Glucose 175 mg/dL (70-105); Lactate Dehydrogenase 259 U/L (135-225); Triglycerides 131 mg/dL (<150); Uric Acid 8.2 mg/dL (2.5-8.0)
[2022-05-26] MEDS: OMEPRAZOLE 20 MG CAPSULE PO SCH (08:33)
[2022-05-26] MEDS: POTASSIUM CHLORIDE 20 MEQ in 0.9 % SODIUM CHLORIDE 1,000 ML IV SCH ×2 (08:35→15:41)
[2022-05-26] MEDS: APIXABAN 5 MG TABLET PO SCH ×2 (08:41→22:17)
[2022-05-26] MEDS: amLODIPine 5 MG TABLET PO SCH ×2 (08:41→22:17)
[2022-05-26] MEDS: INSULIN GLARGINE, HUMAN 1 UNIT/0.01 ML SQ SCH ×2 (08:41→22:16)
[2022-05-26] MEDS: METOPROLOL TARTRATE 50 MG TABLET PO SCH ×2 (08:41→22:16)
[2022-05-26] MEDS: THIAMINE 100 MG in 0.9 % SODIUM CHLORIDE 50 ML IV SCH (08:53)
[2022-05-26] MEDS ORDERED: POTASSIUM CHLORIDE 20 MEQ in DEXTROSE 5% IN WATER 250 ML IV ONE (09:08)
[2022-05-26] MEDS: DULoxetine 30 MG CAPSULE PO SCH (16:50)
[2022-05-26] MEDS: NACL 0.9% W/KCL 20MEQ 1,000 ML IV SCH (18:41)
[2022-05-26] MEDS ORDERED: diphenhydrAMINE 25 MG CAPSULE PO PRN (21:00)
[2022-05-27] MEDS: INSULIN LISPRO 1 UNIT/0.01 ML UNIT SQ SCH ×5 (00:14→20:16)
[2022-05-27] MEDS: LABETALOL 5 MG/ML ML IV PRN ×2 (04:21→12:28)
[2022-05-27] MEDS: NACL 0.9% W/KCL 20MEQ 1,000 ML IV SCH ×5 (04:21→22:18)
[2022-05-27] MEDS: 0.9 % SODIUM CHLORIDE 10 ML SYRINGE IV SCH ×3 (06:06→20:19)
[2022-05-27] MEDS ORDERED: THIAMINE 100 MG/ML VIAL ONE (08:18)
[2022-05-27] MEDS: ONDANSETRON 4 MG/2 ML VIAL IV PRN (08:26)
[2022-05-27] MEDS: OMEPRAZOLE 20 MG CAPSULE PO SCH (08:28)
[2022-05-27] MEDS: INSULIN GLARGINE, HUMAN 1 UNIT/0.01 ML SQ SCH ×2 (08:28→20:17)
[2022-05-27] MEDS: METOPROLOL TARTRATE 50 MG TABLET PO SCH ×2 (08:28→20:19)
[2022-05-27] MEDS: DULoxetine 30 MG CAPSULE PO SCH (08:28)
[2022-05-27] MEDS: APIXABAN 5 MG TABLET PO SCH ×2 (08:28→20:17)
[2022-05-27] MEDS: amLODIPine 5 MG TABLET PO SCH ×2 (08:28→20:19)
[2022-05-27] MEDS: PROCHLORPERAZINE 10 MG/2 ML VIAL IV PRN (08:51)
[2022-05-27] MEDS ORDERED: FLU VACC QS2022-23(6MOS UP)/PF 60 MCG/0.5 ML SYRINGE IM ONE (10:00)
[2022-05-27] MEDS ORDERED: PNEUMOCOCCAL 23-VAL P-SAC VAC 0.5 ML SYRINGE IM ONE (10:15)
[2022-05-27] MEDS: THIAMINE 100 MG in 0.9 % SODIUM CHLORIDE 50 ML IV SCH (10:23)
[2022-05-27 10:37] LABS: ALT/SGPT 20 U/L (<40); AST/SGOT 30 U/L (<32); Albumin 2.7 gm/dL (3.2-5.2); Albumin/Globulin Ratio 0.9 (1.0-2.3); Alkaline Phosphatase 72 U/L (39-117); Bilirubin,Direct < 0.2 mg/dL (0-0.3); Bilirubin,Total 0.4 mg/dL (0.1-1.0); Blood Urea Nitrogen 17 mg/dL (8-23); Calcium 8.7 mg/dL (8.6-10.4); Carbon Dioxide 23 mmol/L (22-30); Chloride 105 mmol/L (96-108); Globulin 3.1 gm/dL (2.2-3.7); Glomerular Filtration Rate 49; Glucose 189 mg/dL (70-105); Lactate Dehydrogenase 323 U/L (135-225); Triglycerides 130 mg/dL (<150); Uric Acid 7.4 mg/dL (2.5-8.0)
[2022-05-27] MEDS: PROMETHAZINE 25 MG/ML VIAL IV PRN (12:28)
--- NOTE | 2022-05-27 14:24 | Internal Med Progress Note ---
SUBJECTIVE Subjective Patient information: Note initiated : 05/27/22 at 2:20 pm Service Date, if different from initiated Date: [] Patient: Ida Jansen a 62 y/o F admitted on 05/25/22 for Vomiting. Chief Complaint: [] Interval history: Ms. Jansen is a 62 year old F Female who presents to the ED with nausea vomiting. Patient had a gastric s leeve surgery in [place] on April 23. She says she was doing well at about 4 days ago which started helping nausea vomiting after she drank some which she said was bad coconut milk. This is her third visit to the ED in 4 days. Patient has been on a pured diet and has been doing relatively well with that occasionally will have a hard time going down but otherwise she has been stable until 4 days ago. She says she left of some coconut water or milk out on the table for a few days and when she drank it it was rancid and it made her nauseous and started vomiting and then since then she had hard time with any liquid. She had a CT abdomen pelvis done but it was was done without oral contrast did not and did not show anything obvious. CT with oral contrast does not show any obstruction or leak at the suture line or pneumoperitoneum. No acute abnormalities. Patient says she is unable to keep down any fluids. She has been taking Phenergan suppositories. She describes some achiness in the epigastric area. ED tried to get a hold of her surgeon in [facility] but he is out of town. Case discussed with bariatric surgeon Dr. Schreiber at [place] who did not see anything concerning and felt that she just needed to be hydrated and that the dehydration is likely causing her nausea vomiting. He states usually just with hydration her symptoms will resolve. She got a DVT after right foot surgery in October 01 Patient still having nausea vomiting we will keep sips and chips only and hopefully can transition to clears tomorrow. Continue IV fluid. Hypokalemia noted. Creatinine improving. 05/27: Last vomit was on 05/26. Patient is currently complaining of mild nausea and mild epigastric abdominal pain. She claims to have good appetite but she has not touched her lunch so far. She had loose bowel movement earlier this morning. Serum creatinine level 1.2, improved from 1.3 yesterday. Continue IV fluid for rehydration purposes and for acute kidney injury. Continue to advance diet as tolerated, currently on a trial of full liquid diet. Continue to provide symptoms controlled with antiemetics and narcotics. Constitutional Vitals: Vital Signs Temp Pulse Resp BP Pulse Ox O2 Del Method 36.8 C 74 16 145/55 98 05/27/22 12:20 05/27/22 12:20 05/27/22 12:20 05/27/22 12:35 05/27/22 12:20 05/27/22 12:20 Period Temp Pulse Resp BP Sys/Jett Pulse Ox O2 Del Method O2 Flow Rate Last 24 Hr 36.2 C-36.9 C 59-82 16-20 120-190/54-76 93-100 Room Air-Room Air Intake and Output 05/27/22 05/27/22 05/27/22 03:59 11:59 19:59 Intake Total 1120 1051 Output Total 500 Balance 620 1051 Weight 122.379 kg Patient Weight 05/28/22 03:59 Weight 122.379 kg Intake & Output: Intake & Output 05/27/22 05/27/22 05/27/22 03:59 11:59 19:59 Intake Total 1120 1051 Output Total 500 Balance 620 1051 Weight 122.379 kg Intake: IV 1000 1051 NaCl 0.9% W/KCl 20Meq 1000ML 1, 1000 1000 000 ml @ 125 mls/hr IV .Q8H [facility] Rx#:[id number] Vitamin B1 100 mg In Sodium 51 Chloride 0.9% 50 ml @ 50 mls/hr IV DAILY [facility] Rx#:[id number] Oral 120 Output: Void Amount 450 Emesis 50 Other: Urine Appearance Clear Urine Color Yellow Stool Size Small Stool Consistency Loose # Voids 1 # Bowel Movements 1 General appearance: cooperative, morbidly obese and no acute distress Head Head exam: Present atraumatic and normal inspection Eye Eye exam: Present normal appearance ENT ENT exam: Present mucous membranes moist, normal exam and normal external ear exam Neck Neck exam: Present normal inspection Respiratory Respiratory exam: Present normal respiratory exam Cardiovascular Cardiovascular exam: Present normal rate and rhythm GI/Abdominal GI/Abdominal exam: Present tenderness Back Exam Back exam: Present normal inspection Neurological Exam Neurological exam: Present alert and oriented X3 Skin Skin exam: Present intact and warm OBJ DATA Labs CBC & Chem 7: 05/25/22 16:37 12/06/22 06:12 Labs: Abnormal Lab Results 05/27/22 05/26/22 05/25/22 06:12 05:56 20:44 RBC Hct MCV MCH RDW POC VBG pO2 POC Venous O2 Sat POC VBG Base Excess VBG Lactic Acid POC Potassium Potassium 3.1 L POC BUN Creatinine 1.2 H 1.3 H POC Creatinine Glucose 189 H 175 H POC Glucose Hemoglobin A1c 9.2 H Uric Acid 8.2 H POC WB Ioniz Calcium GGT 43 H 51 H AST 36 H Lactate Dehydrogenase 323 H 259 H Total Protein 5.8 L Albumin 2.7 L 3.1 L Albumin/Globulin Ratio 0.9 L Beta-Hydroxybutyrate Urine Protein >=300 A Urine Glucose (UA) 500 A Urine Ketones 15 A Urine Occult Blood Moderate A Urine WBC 12 H Urine Bacteria Few A Hyaline Casts 3 H Urine Mucus Few A POC Troponin I 05/25/22 05/25/22 05/25/22 18:29 18:23 16:42 RBC Hct MCV MCH RDW POC VBG pO2 22 L POC Venous O2 Sat 36.0 L POC VBG Base Excess 3.0 H VBG Lactic Acid 2.4 H POC Potassium Potassium POC BUN Creatinine POC Creatinine Glucose POC Glucose Hemoglobin A1c Uric Acid POC WB Ioniz Calcium GGT AST Lactate Dehydrogenase Total Protein Albumin Albumin/Globulin Ratio Beta-Hydroxybutyrate 0.49 H Urine Protein Urine Glucose (UA) Urine Ketones Urine Occult Blood Urine WBC Urine Bacteria Hyaline Casts Urine Mucus POC Troponin I 0.10 H 05/25/22 05/25/22 05/25/22 16:38 16:37 16:36 RBC 5.66 H Hct 45.1 H MCV 79.7 L MCH 25.8 L RDW 15.7 H POC VBG pO2 POC Venous O2 Sat POC VBG Base Excess VBG Lactic Acid POC Potassium 3.2 L Potassium POC BUN 30 H Creatinine POC Creatinine 1.8 H Glucose POC Glucose 347 H Hemoglobin A1c Uric Acid POC WB Ioniz Calcium 1.13 L GGT AST 55 H Lactate Dehydrogenase Total Protein Albumin Albumin/Globulin Ratio Beta-Hydroxybutyrate Urine Protein Urine Glucose (UA) Urine Ketones Urine Occult Blood Urine WBC Urine Bacteria Hyaline Casts Urine Mucus POC Troponin I Meds: Medications Acetaminophen (Acetaminophen 325 Mg Tablet) 650 mg PO Q6HP PRN; Protocol PRN Reason: Per Pain Protocol/Fever > 101 Last Admin: 12/05/22 21:27 Dose: 650 mg Albuterol/Ipratropium (Ipratropium/Albuterol 3 Ml Ampul.Neb) 3 ml NEB Q4HP PRN PRN Reason: Shortness Of Breath Amlodipine Besylate (Amlodipine 5 Mg Tablet) 5 mg PO BID [facility] Last Admin: 05/27/22 08:28 Dose: 5 mg Apixaban (Apixaban 5 Mg Tablet) 5 mg PO BID [facility] Last Admin: 05/27/22 08:28 Dose: 5 mg Dextrose (Dextrose 50% 50 Ml Vial) 0 ml IV UD PRN PRN Reason: Per Sliding Scale Diagnostic Test (Pha) (Accu-Chek 1 Each Strip) 1 each FS Q6 [facility] Last Admin: 05/27/22 12:18 Dose: 1 each Diphenhydramine HCl (Diphenhydramine 25 Mg Capsule) 25 mg PO HSP PRN PRN Reason: Pain Duloxetine HCl (Duloxetine 30 Mg Capsule) 60 mg PO DAILY [facility] Last Admin: 05/27/22 08:28 Dose: 60 mg Glucose (Dextrose 31 Gm Oral.Susp) 15 gm PO PRN PRN PRN Reason: Hypoglycemia Hydralazine HCl (Hydralazine 20 Mg/Ml Vial) 0 mg IV Q2HP PRN PRN Reason: Hypertension Last Admin: 05/26/22 16:00 Dose: 10 mg Thiamine HCl 100 mg/ Sodium (Chloride) 51 mls @ 50 mls/hr IV DAILY [facility] Stop: 05/29/22 10:02 Last Infusion: 05/27/22 12:08 Dose: Infused Potassium Chloride 40 meq/ (Dextrose) 520 mls @ 130 mls/hr IV UD PRN PRN Reason: Potassium < 3 Last Infusion: 05/26/22 13:28 Dose: Infused Magnesium Sulfate (Magnesium Sulfate) 2 gm in 50 mls @ 50 mls/hr IV UD PRN PRN Reason: Magnesium </= 1.6 Potassium Chloride/Sodium Chloride (Nacl 0.9% W/Kcl 20meq 1000ml) 1,000 mls @ 125 mls/hr IV .Q8H [facility] Last Admin: 05/27/22 13:33 Dose: 125 mls/hr Insulin Glargine (Insulin Glargine, Human 1 Unit/0.01 Ml) 15 unit SQ BID [facility] Last Admin: 05/27/22 08:28 Dose: 15 units Insulin Human Lispro (Insulin Lispro 1 Unit/0.01 Ml Unit) 0 unit SQ Q6 [facility]; P rotocol Last Admin: 05/27/22 12:19 Dose: 6 units Labetalol HCl (Labetalol 5 Mg/Ml Ml) 0 mg IV Q2HP PRN PRN Reason: Hypertension Last Admin: 05/27/22 12:28 Dose: 20 mg Lorazepam (Lorazepam 2 Mg/Ml Vial) 0.5 mg IV Q6HP PRN PRN Reason: Nausea Metoprolol Tartrate (Metoprolol Tartrate 50 Mg Tablet) 50 mg PO BID [facility] Last Admin: 05/27/22 08:28 Dose: 50 mg Morphine Sulfate (Morphine 4 Mg/Ml Vial) 0 mg IV Q3HP PRN PRN Reason: Pain Omeprazole (Omeprazole 20 Mg Capsule) 20 mg PO ACB [facility] Last Admin: 05/27/22 08:28 Dose: 20 mg Ondansetron HCl (Ondansetron 4 Mg/2 Ml Vial) 4 mg IV Q4HP PRN PRN Reason: Nausea And Vomiting Last Admin: 05/27/22 08:26 Dose: 4 mg Polyethylene Glycol (Polyethylene Glycol 3350 17 Gm Packet) 17 gm PO DAILYP PRN PRN Reason: Constipation Potassium Chloride (Potassium Chloride 20 Meq Tablet) 40 meq PO UD PRN PRN Reason: Potssium is 3-3.5 Last Admin: 05/26/22 09:23 Dose: 40 meq Potassium Chloride (Potassium Chloride 20 Meq Tablet) 40 meq PO UD PRN PRN Reason: Potassium < 3 Prochlorperazine (Prochlorperazine 10 Mg/2 Ml Vial) 10 mg IV Q6HP PRN PRN Reason: Nausea And Vomiting Last Admin: 05/27/22 08:51 Dose: 10 mg Promethazine HCl (Promethazine 25 Mg/Ml Vial) 12.5 mg IV Q6HP PRN PRN Reason: Nausea And Vomiting Last Admin: 05/27/22 12:28 Dose: 12.5 mg Promethazine HCl (Promethazine 25 Mg Supp.Rect) 25 mg TN Q6HP PRN PRN Reason: Nausea And Vomiting Scopolamine (Scopolamine 1 Patch Patch) 1 patch TOPICAL Q72H [facility] Last Admin: 05/25/22 23:24 Dose: 1 patch Sodium Chloride (0.9 % Sodium Chloride 10 Ml Syringe) 10 ml IV Q8 [facility] Last Admin: 05/27/22 13:39 Dose: Not Given A/P Assessment and plan (1) H/O deep venous thrombosis: Status: Acute (2) Type 2 diabetes mellitus with hyperglycemia: Status: Acute (3) Essential hypertension: Status: Acute (4) Stage 1 acute kidney injury: Status: Acute (5) Obstructive sleep apnea: Status: Chronic (6) Nausea & vomiting: Status: Acute (7) Morbid obesity: Status: Acute Narrative A/P Narrative: Assessment and Plans: 1. Intractable nausea and vomiting, s/p recent gastric sleeve surgery: Inpatient med surg Clear liquid diet, advance as tolerated to regular diet; currently on trial of full liquid diet Zofran Phenergan Compazine Benadryl Morphine 2. h/o DVT: On Eliquis 3. Stage 1 acute kidney injury: Likely due to nausea, vomiting, and thus decreased oral intake Avoid nephrotoxic agents NS w/ KCl 20mEq @125cc/hr Daily BMP to trend kidney functions 4. h/o Obstructive sleep apnea: Continue CPAP at night while sleeping 5. Morbid obesity: [employer]vertising [employer] patient on life style modifications including regular exercise and healthy diet in order to lose weight 6. T2DM: HgA1c 9.2 Insulin Lantus 15 unit BID Insulin Lispro SSI AC HS Accu Check AC HS Hypoglycemia protocol Clear liquid diet, advance as tolerated to regular diet; currently on trial of full liquid diet 7. Essential hypertension: Amlodipine Metoprolol tartrate Hydralazine IV PRN GI ppx: Prilosec DVT ppx: Eliquis Code status: Full Prognosis: guarded Disposition: inpatient med surg Time Spent With Patient Time: Total time spent is greater than 50% in coordination of care (as documented) at patient's floor/unit and/or counseling patient: Total time spent with greater than 50% in coordination of care (as documented) at patient's floor/unit and/or counseling patient:: 25 - 35 minutes
[2022-05-27] MEDS: hydrALAZINE 20 MG/ML VIAL IV PRN (16:52)
[2022-05-27] MEDS: hydrALAZINE 10 MG TABLET PO SCH (20:19)
[2022-05-28] MEDS: 0.9 % SODIUM CHLORIDE 10 ML SYRINGE IV SCH ×3 (05:41→21:11)
[2022-05-28] MEDS: NACL 0.9% W/KCL 20MEQ 1,000 ML IV SCH ×2 (06:57→08:21)
[2022-05-28] MEDS: METOPROLOL TARTRATE 50 MG TABLET PO SCH ×2 (08:20→21:11)
[2022-05-28] MEDS: OMEPRAZOLE 20 MG CAPSULE PO SCH (08:20)
[2022-05-28] MEDS: hydrALAZINE 10 MG TABLET PO SCH ×3 (08:20→21:11)
[2022-05-28] MEDS: INSULIN LISPRO 1 UNIT/0.01 ML UNIT SQ SCH ×4 (08:20→21:01)
[2022-05-28] MEDS: DULoxetine 30 MG CAPSULE PO SCH ×3 (08:20→21:11)
[2022-05-28] MEDS: THIAMINE 100 MG in 0.9 % SODIUM CHLORIDE 50 ML IV SCH (08:21)
[2022-05-28] MEDS: INSULIN GLARGINE, HUMAN 1 UNIT/0.01 ML SQ SCH ×2 (08:21→21:11)
[2022-05-28] MEDS: amLODIPine 5 MG TABLET PO SCH ×2 (08:21→21:10)
[2022-05-28] MEDS: APIXABAN 5 MG TABLET PO SCH ×2 (08:21→21:10)
[2022-05-28 08:54] LABS: Blood Urea Nitrogen 11 mg/dL (8-23); Calcium 8.8 mg/dL (8.6-10.4); Carbon Dioxide 18 mmol/L (22-30); Chloride 107 mmol/L (96-108); Glomerular Filtration Rate 54; Glucose 133 mg/dL (70-105)
--- NOTE | 2022-05-28 13:24 | Internal Med Progress Note ---
SUBJECTIVE Subjective Patient information: Note initiated : 05/28/22 at 1:24 pm Service Date, if different from initiated Date: [] Patient: Ida Jansen a 62 y/o F admitted on 05/25/22 for Vomiting. Chief Complaint: [] Interval history: Ms. Jansen is a 62 year old F Female who presents to the ED with nausea vomiting. Patient had a gastric s leeve surgery in [place] on April 23. She says she was doing well at about 4 days ago which started helping nausea vomiting after she drank some which she said was bad coconut milk. This is her third visit to the ED in 4 days. Patient has been on a pured diet and has been doing relatively well with that occasionally will have a hard time going down but otherwise she has been stable until 4 days ago. She says she left of some coconut water or milk out on the table for a few days and when she drank it it was rancid and it made her nauseous and started vomiting and then since then she had hard time with any liquid. She had a CT abdomen pelvis done but it was was done without oral contrast did not and did not show anything obvious. CT with oral contrast does not show any obstruction or leak at the suture line or pneumoperitoneum. No acute abnormalities. Patient says she is unable to keep down any fluids. She has been taking Phenergan suppositories. She describes some achiness in the epigastric area. ED tried to get a hold of her surgeon in [facility] but he is out of town. Case discussed with bariatric surgeon Dr. Schreiber at [facility] who did not see anything concerning and felt that she just needed to be hydrated and that the dehydration is likely causing her nausea vomiting. He states usually just with hydration her symptoms will resolve. She got a DVT after right foot surgery in October 01 Patient still having nausea vomiting we will keep sips and chips only and hopefully can transition to clears tomorrow. Continue IV fluid. Hypokalemia noted. Creatinine improving. 05/27: Last vomit was on 05/26. Patient is currently complaining of mild nausea and mild epigastric abdominal pain. She claims to have good appetite but she has not touched her lunch so far. She had loose bowel movement earlier this morning. Serum creatinine level 1.2, improved from 1.3 yesterday. Continue IV fluid for rehydration purposes and for acute kidney injury. Continue to advance diet as tolerated, currently on a trial of full liquid diet. Continue to provide symptoms controlled with antiemetics and narcotics. 05/28: Patient is currently on regular diet, had about half of the regular diet WITH nausea and vomiting afterward. She denies any abdominal pain. Serum creatinine level 1.1. Saline lock. d/c daily labs. Continue to encourage patients to work on advan cing her diet. We will keep the patient in-house for today and will discharge patient's when she can finished most of the provided meal without nausea or vomiting. Constitutional Vitals: Vital Signs Temp Pulse Resp BP Pulse Ox O2 Del Method 36.9 C 70 14 135/57 100 05/28/22 08:00 05/28/22 08:00 05/28/22 08:00 05/28/22 08:00 05/28/22 08:00 05/28/22 08:00 Period Temp Pulse Resp BP Sys/Jett Pulse Ox O2 Del Method O2 Flow Rate Last 24 Hr 36.6 C-37.1 C 63-70 14-16 71-178/41-76 94-100 Room Air-Room Air Intake and Output 05/28/22 05/28/22 05/28/22 03:59 11:59 19:59 Intake Total 1280 1226 Output Total 75 350 Balance 1205 876 Intake & Output: Intake & Output 05/28/22 05/28/22 05/28/22 03:59 11:59 19:59 Intake Total 1280 1226 Output Total 75 350 Balance 1205 876 Intake: IV 1000 1226 NaCl 0.9% W/KCl 20Meq 1000ML 1, 1000 1175 000 ml @ 125 mls/hr IV .Q8H JAV[facility] Rx#:[id number] Vitamin B1 100 mg In Sodium 51 Chloride 0.9% 50 ml @ 50 mls/hr IV DAILY JAV[facility] Rx#:[id number] Oral 280 Output: Void Amount 75 Urine/Stool Mix 350 Other: Meal Breakfast Percent of Meal Consumed 25% Feeding Ability Independent Urine Appearance Clear Urine Color Pale Urine Odor Normal Stool Size Small # Bowel Movements 1 # of times incontinent of 1 Bowels Head Head exam: Present atraumatic and normal inspection Eye Eye exam: Present normal appearance ENT ENT exam: Present mucous membranes moist, normal exam and normal external ear exam Neck Neck exam: Present normal inspection Respiratory Respiratory exam: Present normal respiratory exam Cardiovascular Cardiovascular exam: Present normal rate and rhythm GI/Abdominal GI/Abdominal exam: Present normal bowel sounds Back Exam Back exam: Present normal inspection Neurological Exam Neurological exam: Present alert and oriented X3 Skin Skin exam: Present intact and warm OBJ DATA Labs CBC & Chem 7: 05/25/22 16:37 05/28/22 05:52 Labs: Abnormal Lab Results 05/28/22 05/27/22 05/26/22 05:52 06:12 05:56 RBC Hct MCV MCH RDW POC VBG pO2 POC Venous O2 Sat POC VBG Base Excess VBG Lactic Acid POC Potassium Potassium 3.1 L Carbon Dioxide 18 L POC BUN Creatinine 1.2 H 1.3 H POC Creatinine Glucose 133 H 189 H 175 H POC Glucose Hemoglobin A1c 9.2 H Uric Acid 8.2 H POC WB Ioniz Calcium GGT 43 H 51 H AST 36 H Lactate Dehydrogenase 323 H 259 H Total Protein 5.8 L Albumin 2.7 L 3.1 L Albumin/Globulin Ratio 0.9 L Beta-Hydroxybutyrate Urine Protein Urine Glucose (UA) Urine Ketones Urine Occult Blood Urine WBC Urine Bacteria Hyaline Casts Urine Mucus POC Troponin I 05/25/22 05/25/22 05/25/22 20:44 18:29 18:23 RBC Hct MCV MCH RDW POC VBG pO2 22 L POC Venous O2 Sat 36.0 L POC VBG Base Excess 3.0 H VBG Lactic Acid 2.4 H POC Potassium Potassium Carbon Dioxide POC BUN Creatinine POC Creatinine Glucose POC Glucose Hemoglobin A1c Uric Acid POC WB Ioniz Calcium GGT AST Lactate Dehydrogenase Total Protein Albumin Albumin/Globulin Ratio Beta-Hydroxybutyrate 0.49 H Urine Protein >=300 A Urine Glucose (UA) 500 A Urine Ketones 15 A Urine Occult Blood Moderate A Urine WBC 12 H Urine Bacteria Few A Hyaline Casts 3 H Urine Mucus Few A POC Troponin I 05/25/22 05/25/22 05/25/22 16:42 16:38 16:37 RBC 5.66 H Hct 45.1 H MCV 79.7 L MCH 25.8 L RDW 15.7 H POC VBG pO2 POC Venous O2 Sat POC VBG Base Excess VBG Lactic Acid POC Potassium 3.2 L Potassium Carbon Dioxide POC BUN 30 H Creatinine POC Creatinine 1.8 H Glucose POC Glucose 347 H Hemoglobin A1c Uric Acid POC WB Ioniz Calcium 1.13 L GGT AST Lactate Dehydrogenase Total Protein Albumin Albumin/Globulin Ratio Beta-Hydroxybutyrate Urine Protein Urine Glucose (UA) Urine Ketones Urine Occult Blood Urine WBC Urine Bacteria Hyaline Casts Urine Mucus POC Troponin I 0.10 H 05/25/22 16:36 RBC Hct MCV MCH RDW POC VBG pO2 POC Venous O2 Sat POC VBG Base Excess VBG Lactic Acid POC Potassium Potassium Carbon Dioxide POC BUN Creatinine POC Creatinine Glucose POC Glucose Hemoglobin A1c Uric Acid POC WB Ioniz Calcium GGT AST 55 H Lactate Dehydrogenase Total Protein Albumin Albumin/Globulin Ratio Beta-Hydroxybutyrate Urine Protein Urine Glucose (UA) Urine Ketones Urine Occult Blood Urine WBC Urine Bacteria Hyaline Casts Urine Mucus POC Troponin I Meds: Medications Acetaminophen (Acetaminophen 325 Mg Tablet) 650 mg PO Q6HP PRN; Protocol PRN Reason: Per Pain Protocol/Fever > 101 Last Admin: 05/26/22 21:27 Dose: 650 mg Albuterol/Ipratropium (Ipratropium/Albuterol 3 Ml Ampul.Neb) 3 ml NEB Q4HP PRN PRN Reason: Shortness Of Breath Amlodipine Besylate (Amlodipine 5 Mg Tablet) 5 mg PO BID [facility] Last Admin: 05/28/22 08:21 Dose: 5 mg Apixaban (Apixaban 5 Mg Tablet) 5 mg PO BID [facility] Last Admin: 05/28/22 08:21 Dose: 5 mg Dextrose (Dextrose 50% 50 Ml Vial) 0 ml IV UD PRN PRN Reason: Per Sliding Scale Diagnostic Test (Pha) (Accu-Chek 1 Each Strip) 1 each FS ACHS [facility] Last Admin: 05/28/22 12:12 Dose: 1 each Diphenhydramine HCl (Diphenhydramine 25 Mg Capsule) 25 mg PO HSP PRN PRN Reason: Pain Duloxetine HCl (Duloxetine 30 Mg Capsule) 30 mg PO BID [facility] Glucose (Dextrose 31 Gm Oral.Susp) 15 gm PO PRN PRN PRN Reason: Hypoglycemia Hydralazine HCl (Hydralazine 20 Mg/Ml Vial) 0 mg IV Q2HP PRN PRN Reason: Hypertension Last Admin: 05/27/22 16:52 Dose: 20 mg Hydralazine HCl (Hydralazine 10 Mg Tablet) 10 mg PO TID [facility] Last Admin: 05/28/22 08:20 Dose: 10 mg Thiamine HCl 100 mg/ Sodium (Chloride) 51 mls @ 50 mls/hr IV DAILY [facility] Stop: 05/29/22 10:02 Last Infusion: 05/28/22 09:23 Dose: Infused Potassium Chloride 40 meq/ (Dextrose) 520 mls @ 130 mls/hr IV UD PRN PRN Reason: Potassium < 3 Last Infusion: 05/26/22 13:28 Dose: Infused Magnesium Sulfate (Magnesium Sulfate) 2 gm in 50 mls @ 50 mls/hr IV UD PRN PRN Reason: Magnesium </= 1.6 Insulin Glargine (Insulin Glargine, Human 1 Unit/0.01 Ml) 15 unit SQ BID [facility] Last Admin: 05/28/22 08:21 Dose: 15 units Insulin Human Lispro (Insulin Lispro 1 Unit/0.01 Ml Unit) 0 unit SQ ACHS [facility]; Protocol Last Admin: 05/28/22 12:12 Dose: Not Given Labetalol HCl (Labetalol 5 Mg/Ml Ml) 0 mg IV Q2HP PRN PRN Reason: Hypertension Last Admin: 05/27/22 12:28 Dose: 20 mg Lorazepam (Lorazepam 2 Mg/Ml Vial) 0.5 mg IV Q6HP PRN PRN Reason: Nausea Metoprolol Tartrate (Metoprolol Tartrate 50 Mg Tablet) 50 mg PO BID [facility] Last Admin: 05/28/22 08:20 Dose: 50 mg Morphine Sulfate (Morphine 4 Mg/Ml Vial) 0 mg IV Q3HP PRN PRN Reason: Pain Omeprazole (Omeprazole 20 Mg Capsule) 20 mg PO ACB [facility] Last Admin: 05/28/22 08:20 Dose: 20 mg Ondansetron HCl (Ondansetron 4 Mg/2 Ml Vial) 4 mg IV Q4HP PRN PRN Reason: Nausea And Vomiting Last Admin: 05/27/22 08:26 Dose: 4 mg Polyethylene Glycol (Polyethylene Glycol 3350 17 Gm Packet) 17 gm PO DAILYP PRN PRN Reason: Constipation Potassium Chloride (Potassium Chloride 20 Meq Tablet) 40 meq PO UD PRN PRN Reason: Potssium is 3-3.5 Last Admin: 05/26/22 09:23 Dose: 40 meq Potassium Chloride (Potassium Chloride 20 Meq Tablet) 40 meq PO UD PRN PRN Reason: Potassium < 3 Prochlorperazine (Prochlorperazine 10 Mg/2 Ml Vial) 10 mg IV Q6HP PRN PRN Reason: Nausea And Vomiting Last Admin: 05/27/22 08:51 Dose: 10 mg Promethazine HCl (Promethazine 25 Mg/Ml Vial) 12.5 mg IV Q6HP PRN PRN Reason: Nausea And Vomiting Last Admin: 05/27/22 12:28 Dose: 12.5 mg Promethazine HCl (Promethazine 25 Mg Supp.Rect) 25 mg MT Q6HP PRN PRN Reason: Nausea And Vomiting Scopolamine (Scopolamine 1 Patch Patch) 1 patch TOPICAL Q72H [facility] Last Admin: 05/25/22 23:24 Dose: 1 patch Sodium Chloride (0.9 % Sodium Chloride 10 Ml Syringe) 10 ml IV Q8 [facility] Last Admin: 05/28/22 05:41 Dose: 10 ml A/P Assessment and plan (1) H/O deep venous thrombosis: Status: Acute (2) Type 2 diabetes mellitus with hyperglycemia: Status: Acute (3) Essential hypertension: Status: Acute (4) Stage 1 acute kidney injury: Status: Acute (5) Obstructive sleep apnea: Status: Chronic (6) Nausea & vomiting: Status: Acute (7) Morbid obesity: Status: Acute Narrative A/P Narrative: Assessment and Plans: 1. Intractable nausea and vomiting, s/p recent gastric sleeve surgery: Inpatient med surg Patient is currently on regular diet, had about half of the regular diet WITH nausea and vomiting afterward Zofran Phenergan Compazine Benadryl Morphine 2. h/o DVT: On Eliquis 3. Stage 1 acute kidney injury: RESOLVED Likely due to nausea, vomiting, and thus decreased oral intake Avoid nephrotoxic agents Saline lock d/c daily labs 4. h/o Obstructive sleep apnea: Continue CPAP at night while sleeping 5. Morbid obesity: Instrument [employer] patient on life style modifications including regular exercise and healthy diet in order to lose weight 6. T2DM: HgA1c 9.2 Insulin Lantus 15 unit BID Insulin Lispro SSI AC HS Accu Check AC HS Hypoglycemia protocol Patient is currently on regular diet, had about half of the regular diet WITH nausea and vomiting afterward 7. Essential hypertension: Amlodipine Metoprolol tartrate Hydralazine IV PRN GI ppx: Prilosec DVT ppx: Eliquis Code status: Full Prognosis: Stable Disposition: inpatient med surg Time Spent With Patient Time: Total time spent is greater than 50% in coordination of care (as documented) at patient's floor/unit and/or counseling patient: Total time spent with greater than 50% in coordination of care (as documented) at patient's floor/unit and/or counseling patient:: 25 - 35 minutes
[2022-05-28] MEDS: PROMETHAZINE 25 MG/ML VIAL IV PRN (13:34)
[2022-05-28] MEDS: PROCHLORPERAZINE 10 MG/2 ML VIAL IV PRN (15:30)
[2022-05-28] MEDS: ONDANSETRON 4 MG/2 ML VIAL IV PRN (21:11)
[2022-05-28] MEDS: SCOPOLAMINE 1 PATCH PATCH TOPICAL SCH (21:17)
[2022-05-29] MEDS: 0.9 % SODIUM CHLORIDE 10 ML SYRINGE IV SCH ×3 (05:34→22:27)
[2022-05-29] MEDS: INSULIN LISPRO 1 UNIT/0.01 ML UNIT SQ SCH ×4 (08:35→22:27)
[2022-05-29] MEDS: OMEPRAZOLE 20 MG CAPSULE PO SCH (08:36)
[2022-05-29] MEDS: PROMETHAZINE 25 MG/ML VIAL IV PRN (11:56)
[2022-05-29] MEDS: APIXABAN 5 MG TABLET PO SCH ×2 (12:03→21:57)
[2022-05-29] MEDS: amLODIPine 5 MG TABLET PO SCH ×2 (12:03→21:57)
[2022-05-29] MEDS: hydrALAZINE 10 MG TABLET PO SCH ×3 (12:03→22:25)
[2022-05-29] MEDS: DULoxetine 30 MG CAPSULE PO SCH ×2 (12:03→22:25)
[2022-05-29] MEDS: METOPROLOL TARTRATE 50 MG TABLET PO SCH ×2 (12:04→21:57)
[2022-05-29] MEDS: THIAMINE 100 MG in 0.9 % SODIUM CHLORIDE 50 ML IV SCH (13:06)
--- NOTE | 2022-05-29 13:53 | Internal Med Progress Note ---
SUBJECTIVE Subjective Patient information: Note initiated : 05/29/22 at 1:51 pm Service Date, if different from initiated Date: [] Patient: Ida Jansen a 62 y/o F admitted on 05/25/22 for Vomiting. Chief Complaint: [] Interval history: Ms. Jansen is a 62 year old F Female who presents to the ED with nausea vomiting. Patient had a gastric s leeve surgery in [place] on April 23. She says she was doing well at about 4 days ago which started helping nausea vomiting after she drank some which she said was bad coconut milk. This is her third visit to the ED in 4 days. Patient has been on a pured diet and has been doing relatively well with that occasionally will have a hard time going down but otherwise she has been stable until 4 days ago. She says she left of some coconut water or milk out on the table for a few days and when she drank it it was rancid and it made her nauseous and started vomiting and then since then she had hard time with any liquid. She had a CT abdomen pelvis done but it was was done without oral contrast did not and did not show anything obvious. CT with oral contrast does not show any obstruction or leak at the suture line or pneumoperitoneum. No acute abnormalities. Patient says she is unable to keep down any fluids. She has been taking Phenergan suppositories. She describes some achiness in the epigastric area. ED tried to get a hold of her surgeon in [facility] but he is out of town. Case discussed with bariatric surgeon Dr. Schreiber at [facility] who did not see anything concerning and felt that she just needed to be hydrated and that the dehydration is likely causing her nausea vomiting. He states usually just with hydration her symptoms will resolve. She got a DVT after right foot surgery in October 01 Patient still having nausea vomiting we will keep sips and chips only and hopefully can transition to clears tomorrow. Continue IV fluid. Hypokalemia noted. Creatinine improving. 05/27: Last vomit was on 05/26. Patient is currently complaining of mild nausea and mild epigastric abdominal pain. She claims to have good appetite but she has not touched her lunch so far. She had loose bowel movement earlier this morning. Serum creatinine level 1.2, improved from 1.3 yesterday. Continue IV fluid for rehydration purposes and for acute kidney injury. Continue to advance diet as tolerated, currently on a trial of full liquid diet. Continue to provide symptoms controlled with antiemetics and narcotics. 05/28: Patient is currently on regular diet, had about half of the regular diet WITH nausea and vomiting afterward. She denies any abdominal pain. Serum creatinine level 1.1. Saline lock. d/c daily labs. Continue to encourage patients to work on advan cing her diet. We will keep the patient in-house for today and will discharge patient's when she can finished most of the provided meal without nausea or vomiting. 05/29: Patient's only tolerated about 25% of her regular diet breakfast and lunch with nausea without vomiting. She denies any abdominal pain. I have a good discussions with her about the prognosis and expectations and we agreed the patient would benefit of staying in the hospital for another day. Constitutional Vitals: Vital Signs Temp Pulse Resp BP Pulse Ox O2 Del Method 37.0 C 76 20 185/86 100 05/29/22 12:00 05/29/22 12:00 05/29/22 12:00 05/29/22 12:00 05/29/22 12:00 05/29/22 12:00 Period Temp Pulse Resp BP Sys/Jett Pulse Ox O2 Del Method O2 Flow Rate Last 24 Hr 36.4 C-37.0 C 56-76 16-20 124-185/60-86 95-100 Room Air-Room Air Intake and Output 05/29/22 05/29/22 05/29/22 03:59 11:59 19:59 Intake Total 100 Output Total 450 225 Balance 100 -450 -225 Intake & Output: Intake & Output 05/29/22 05/29/22 05/29/22 03:59 11:59 19:59 Intake Total 100 Output Total 450 225 Balance 100 -450 -225 Intake: Oral 100 Output: Void Amount 450 225 Other: Meal Dinner Breakfast Percent of Meal Consumed 25% 25% Feeding Ability Independent Independent Urine Appearance Clear Clear Sediment Urine Color Yellow Dark Yellow Urine Odor Normal # Unmeasured Emesis 1 Head Head exam: Present atraumatic and normal inspection Eye Eye exam: Present normal appearance ENT ENT exam: Present mucous membranes moist, normal exam and normal external ear exam Neck Neck exam: Present normal inspection Respiratory Respiratory exam: Present normal respiratory exam Cardiovascular Cardiovascular exam: Present normal rate and rhythm GI/Abdominal GI/Abdominal exam: Present normal bowel sounds Back Exam Back exam: Present normal inspection Neurological Exam Neurological exam: Present alert and oriented X3 Skin Skin exam: Present intact and warm OBJ DATA Labs CBC & Chem 7: 05/25/22 16:37 05/28/22 05:52 Labs: Abnormal Lab Results 05/28/22 05/27/22 05:52 06:12 Carbon Dioxide 18 L Creatinine 1.2 H Glucose 133 H 189 H GGT 43 H Lactate Dehydrogenase 323 H Total Protein 5.8 L Albumin 2.7 L Albumin/Globulin Ratio 0.9 L Meds: Medications Acetaminophen (Acetaminophen 325 Mg Tablet) 650 mg PO Q6HP PRN; Protocol PRN Reason: Per Pain Protocol/Fever > 101 Last Admin: 05/26/22 21:27 Dose: 650 mg Albuterol/Ipratropium (Ipratropium/Albuterol 3 Ml Ampul.Neb) 3 ml NEB Q4HP PRN PRN Reason: Shortness Of Breath Amlodipine Besylate (Amlodipine 5 Mg Tablet) 5 mg PO BID [facility] Last Admin: 05/29/22 12:03 Dose: 5 mg Apixaban (Apixaban 5 Mg Tablet) 5 mg PO BID [facility] Last Admin: 05/29/22 12:03 Dose: 5 mg Dextrose (Dextrose 50% 50 Ml Vial) 0 ml IV UD PRN PRN Reason: Per Sliding Scale Diagnostic Test (Pha) (Accu-Chek 1 Each Strip) 1 each FS ACHS [facility] Last Admin: 05/29/22 11:58 Dose: 1 each Diphenhydramine HCl (Diphenhydramine 25 Mg Capsule) 25 mg PO HSP PRN PRN Reason: Pain Duloxetine HCl (Duloxetine 30 Mg Capsule) 30 mg PO BID [facility] Last Admin: 05/29/22 12:03 Dose: 30 mg Glucose (Dextrose 31 Gm Oral.Susp) 15 gm PO PRN PRN PRN Reason: Hypoglycemia Hydralazine HCl (Hydralazine 20 Mg/Ml Vial) 0 mg IV Q2HP PRN PRN Reason: Hypertension Last Admin: 05/27/22 16:52 Dose: 20 mg Hydralazine HCl (Hydralazine 10 Mg Tablet) 10 mg PO TID [facility] Last Admin: 05/29/22 12:03 Dose: 10 mg Potassium Chloride 40 meq/ (Dextrose) 520 mls @ 130 mls/hr IV UD PRN PRN Reason: Potassium < 3 Last Infusion: 05/26/22 13:28 Dose: Infused Magnesium Sulfate (Magnesium Sulfate) 2 gm in 50 mls @ 50 mls/hr IV UD PRN PRN Reason: Magnesium </= 1.6 Insulin Glargine (Insulin Glargine, Human 1 Unit/0.01 Ml) 15 unit SQ BID [facility] Last Admin: 05/28/22 21:11 Dose: 15 units Insulin Human Lispro (Insulin Lispro 1 Unit/0.01 Ml Unit) 0 unit SQ ACHS [facility]; Protocol Last Admin: 05/29/22 12:04 Dose: Not Given Labetalol HCl (Labetalol 5 Mg/Ml Ml) 0 mg IV Q2HP PRN PRN Reason: Hypertension Last Admin: 05/27/22 12:28 Dose: 20 mg Lorazepam (Lorazepam 2 Mg/Ml Vial) 0.5 mg IV Q6HP PRN PRN Reason: Nausea Metoprolol Tartrate (Metoprolol Tartrate 50 Mg Tablet) 50 mg PO BID [facility] Last Admin: 05/29/22 12:04 Dose: 50 mg Morphine Sulfate (Morphine 4 Mg/Ml Vial) 0 mg IV Q3HP PRN PRN Reason: Pain Omeprazole (Omeprazole 20 Mg Capsule) 20 mg PO B [facility] Last Admin: 05/29/22 08:36 Dose: 20 mg Ondansetron HCl (Ondansetron 4 Mg/2 Ml Vial) 4 mg IV Q4HP PRN PRN Reason: Nausea And Vomiting Last Admin: 05/28/22 21:11 Dose: 4 mg Polyethylene Glycol (Polyethylene Glycol 3350 17 Gm Packet) 17 gm PO DAILYP PRN PRN Reason: Constipation Potassium Chloride (Potassium Chloride 20 Meq Tablet) 40 meq PO UD PRN PRN Reason: Potssium is 3-3.5 Last Admin: 05/26/22 09:23 Dose: 40 meq Potassium Chloride (Potassium Chloride 20 Meq Tablet) 40 meq PO UD PRN PRN Reason: Potassium < 3 Prochlorperazine (Prochlorperazine 10 Mg/2 Ml Vial) 10 mg IV Q6HP PRN PRN Reason: Nausea And Vomiting Last Admin: 05/28/22 15:30 Dose: 10 mg Promethazine HCl (Promethazine 25 Mg/Ml Vial) 12.5 mg IV Q6HP PRN PRN Reason: Nausea And Vomiting Last Admin: 05/29/22 11:56 Dose: 12.5 mg Promethazine HCl (Promethazine 25 Mg Supp.Rect) 25 mg [place] Q6HP PRN PRN Reason: Nausea And Vomiting Scopolamine (Scopolamine 1 Patch Patch) 1 patch TOPICAL Q72H [facility] Last Admin: 05/28/22 21:17 Dose: 1 patch Sodium Chloride (0.9 % Sodium Chloride 10 Ml Syringe) 10 ml IV Q8 [facility] Last Admin: 05/29/22 05:34 Dose: 10 ml A/P Assessment and plan (1) H/O deep venous thrombosis: Status: Acute (2) Type 2 diabetes mellitus with hyperglycemia: Status: Acute (3) Essential hypertension: Status: Acute (4) Stage 1 acute kidney injury: Status: Acute (5) Obstructive sleep apnea: Status: Chronic (6) Nausea & vomiting: Status: Acute (7) Morbid obesity: Status: Acute Narrative A/P Narrative: Assessment and Plans: 1. Intractable nausea and vomiting, s/p recent gastric sleeve surgery: Inpatient med surg We will keep the patient in-house while encouraging her to take her time to work on her diet Zofran Phenergan Compazine Benadryl Morphine 2. h/o DVT: On Eliquis 3. Stage 1 acute kidney injury: RESOLVED Likely due to nausea, vomiting, and thus decreased oral intake Avoid nephrotoxic agents Saline lock d/c daily labs 4. h/o Obstructive sleep apnea: Continue CPAP at night while sleeping 5. Morbid obesity: [employer] patient on life style modifications including regular exercise and healthy diet in order to lose weight 6. T2DM: HgA1c 9.2 Insulin Lantus 15 unit BID Insulin Lispro SSI AC HS Accu Check AC HS Hypoglycemia protocol Patient is currently on regular diet, had about half of the regular diet WITH nausea and vomiting afterward 7. Essential hypertension: Amlodipine Metoprolol tartrate Hydralazine IV PRN GI ppx: Prilosec DVT ppx: Eliquis Code status: Full Prognosis: Stable Disposition: inpatient med surg Time Spent With Patient Time: Total time spent is greater than 50% in coordination of care (as documented) at patient's floor/unit and/or counseling patient: Total time spent with greater than 50% in coordination of care (as documented) at patient's floor/unit and/or counseling patient:: 25 - 35 minutes
[2022-05-29] MEDS: INSULIN GLARGINE, HUMAN 1 UNIT/0.01 ML SQ SCH ×2 (14:03→22:25)
[2022-05-29] MEDS: ONDANSETRON 4 MG/2 ML VIAL IV PRN (16:24)
[2022-05-30] MEDS: 0.9 % SODIUM CHLORIDE 10 ML SYRINGE IV SCH ×2 (05:43→14:30)
[2022-05-30] MEDS: OMEPRAZOLE 20 MG CAPSULE PO SCH (08:20)
[2022-05-30] MEDS: INSULIN LISPRO 1 UNIT/0.01 ML UNIT SQ SCH ×2 (08:24→11:10)
[2022-05-30] MEDS: hydrALAZINE 10 MG TABLET PO SCH ×2 (08:28→14:05)
[2022-05-30] MEDS: DULoxetine 30 MG CAPSULE PO SCH (08:28)
[2022-05-30] MEDS: amLODIPine 5 MG TABLET PO SCH (08:28)
[2022-05-30] MEDS: METOPROLOL TARTRATE 50 MG TABLET PO SCH (08:28)
[2022-05-30] MEDS: APIXABAN 5 MG TABLET PO SCH (08:28)
[2022-05-30] MEDS: INSULIN GLARGINE, HUMAN 1 UNIT/0.01 ML SQ SCH (09:21)
--- NOTE | 2022-05-30 11:01 | Discharge Summary ---
Discharge Provider Provider IMPORTANT FOLLOW-UP INFORMATION FOR PCP: Patient information: Note initiated : 05/30/22 at 10:58 am Service Date, if different from initiated Date: [] Patient: Ida Jansen 62 y/o F admitted on 05/25/22 for Vomiting. Chief Complaint: [] Date of admission: 05/25/22 21:57 Discharge date: 05/30/22 Primary care physician: CHARLETTE Prasad Attending physician on admission: Tomas Floyd Consults: 05/25/22 Consult to Physician [CONS] Stat Comment: Consulting Provider: Tomas Floyd Reason For Exam: Physician to Consult 05/25/22 18:44 Consult to Physician [CONS] Stat Comment: Consulting Provider: Sahil Carrera Reason For Exam: Physician to Consult Attending physician on discharge: [facility] [place] [facility] COURSE Hospital Course Hospital course: Ms. Jansen is a 62 year old F Female who presents to the ED with nausea vomiting. Patient had a gastric sleeve surgery in [place] on April 23. She says she was doing well at about 4 days ago which started helping nausea vomiting after she drank some which she said was bad coconut milk. This is her third visit to the ED in 4 days. Patient has been on a pured diet and has been doing relatively well with that occasionally will have a hard time going down but otherwise she has been stable until 4 days ago. She says she left of some coconut water or milk out on the table for a few days and when she drank it it was rancid and it made her nauseous and started vomiting and then since then she had hard time with any liquid. She had a CT abdomen pelvis done but it was was done without oral contrast did not and did not show anything obvious. CT with oral contrast does not show any obstruction or leak at the suture line or pneumoperitoneum. No acute abnormalities. Patient says she is unable to keep down any fluids. She has been taking Phenergan suppositories. She describes some achiness in the epigastric area. ED tried to get a hold of her surgeon in [facility] but he is out of town. Case discussed with bariatric surgeon Dr. Schreiber at [facility] who did not see anything concerning and felt that she just needed to be hydrated and that the dehydration is likely causing her nausea vomiting. He states usually just with hydration her symptoms will resolve. She got a DVT after right foot surgery in October 01 Patient still having nausea vomiting we will keep sips and chips only and hopefully can transition to clears tomorrow. Continue IV fluid. Hypokalemia noted. Creatinine improving. 05/27: Last vomit was on 05/26. Patient is currently complaining of mild nausea and mild epigastric abdominal pain. She claims to have good appetite but she has not touched her lunch so far. She had loose bowel movement earlier this morning. Serum creatinine level 1.2, improved from 1.3 yesterday. Continue IV fluid for rehydration purposes and for acute kidney injury. Continue to advance diet as tolerated, currently on a trial of full liquid diet. Continue to provide symptoms controlled with antiemetics and narcotics. 05/28: Patient is currently on regular diet, had about half of the regular diet WITH nausea and vomiting afterward. She denies any abdominal pain. Serum creatinine level 1.1. Saline lock. d/c daily labs. Continue to encourage patients to work on advancing her diet. We will keep the patient in-house for today and will discharge patient's when she can finished most of the provided meal without nausea or vomiting. 05/29: Patient's only tolerated about 25% of her regular diet breakfast and lunch with nausea without vomiting. She denies any abdominal pain. I have a good discussions with her about the prognosis and expectations and we agreed the patient would benefit of staying in the hospital for another day. 05/30: Tolerated food without nausea vomiting. Reached clinical stability. Decision made to discharge home with Rx sent to pharmacy. 2 week PCP follow up appointment made for her. All questions were answered prior to patient being physically discharged. Discharge diagnosis: Nausea vomiting dehydration acute kidney injury Time Spent with Patient Time attestation: Total time spent providing and/or coordinating discharge services: Time spent: Less than 30 minutes EXAM Constitutional Vitals: Temp Pulse Resp BP Pulse Ox O2 Del Method 36.8 C 60 16 130/59 96 05/30/22 06:48 05/30/22 06:48 05/30/22 06:48 05/30/22 06:48 05/30/22 08:50 05/30/22 08:50 General appearance: cooperative and no acute distress Head Head exam: Present atraumatic and normocephalic Eye Eye exam: Present EOMI and PERRL ENT ENT exam: Present mucous membranes moist, normal exam and normal external ear exam Neck Neck exam: Present normal inspection; Absent lymphadenopathy, tenderness or thyromegaly Respiratory Respiratory exam: Absent accessory muscle use, respiratory distress or wheezes Cardiovascular Cardiovascular exam: Present normal rate and rhythm; Absent JVD GI/Abdominal GI/Abdominal exam: Present normal bowel sounds and soft; Absent organomegaly or tenderness Extremities Exam Extremities exam: Present full ROM and normal capillary refill; Absent normal inspection or tenderness Additional comments: Right trans-tarsal amputation Neurological Exam Neurological exam: Present alert, CN II-XII intact and oriented X3; Absent motor sensory deficit Psychiatric Psychiatric exam: Present normal affect and normal mood; Absent anxious or depressed Skin Skin exam: Present dry and intact Discharge Plan Patient/Caregiver Discharge Instructions Prescriptions: Continued (DME) pen needle, diabetic [TechLITE Pen Needle] 31 gauge x 5/16" needle See Rx Instructions .ROUTE .MEDSUPPLY Qty: 1200 Rx Instructions: As directed omeprazole 20 mg PO DAILY duloxetine 30 mg capsule,delayed release(DR/EC) See Rx Instructions .ROUTE .COMPLEX Qty: 60 0RF Dose Instruction: 1 cap PO qAM x 7 days, then 2 caps PO qAM thereafter ; Rx Instructions: 1 cap PO qAM x 7 days, then 2 caps PO qAM thereafter diphenhydramine-acetaminophen [Tylenol PM Extra Strength] 25-500 mg tablet 1 tab PO QHS PRN (Reason: Pain) amlodipine 10 mg tablet 0.5 tab PO BID metoprolol tartrate 50 mg tablet 1 tab PO BID insulin aspart U-100 [Novolog Flexpen U-100 Insulin] 100 unit/mL (3 mL) insulin pen See Protocol SUBCUT TID Protocol: Insulin Sliding Scale, Med Condition: HUMALOG/NOVALOG SC SLIDING Dose/Route: SCALE Condition: FSBS < 70 Dose/Route: Give 4 Oz juice, or 15gm oral Instruction: Glucose, or 25ml D50W IV if Dose/Route: unable to take PO. Recheck in Instruction: 15 min and repeat if FSBS < 70 Condition: FSBS 71-140 Dose/Route: NO COVERAGE Condition: FSBS 141-170 Dose/Route: 2 UNITS Condition: FSBS 171-200 Dose/Route: 4 UNITS Condition: FSBS 201-250 Dose/Route: 6 UNITS Condition: FSBS 251-300 Dose/Route: 8 UNITS Condition: FSBS 301-350 Dose/Route: 10 UNITS Condition: FSBS 351-400 Dose/Route: 12 UNITS Condition: FSBS > 400 Dose/Route: 14 UNITS; REPEAT Q2H X2 Instruction: CONTINUE FOLLOWING SLIDING Condition: SCALE; IF STILL > 400; CALL Dose/Route: PHYSICIAN Label Comments: [NO ORIGINAL SIG] insulin glargine [Lantus Solostar U-100 Insulin] 100 unit/mL (3 mL) insulin pen 30 unit subcut BID Eliquis 5 mg Tablet 5 mg PO BID promethazine 25 mg suppository 25 mg GA Q6H PRN (Reason: nausea and vomiting) Qty: 12 2RF ondansetron 4 mg tablet,disintegrating 4 mg PO Q8H PRN (Reason: nausea and vomiting) Qty: 14 2RF Follow Up Plan Follow up with: Dheeraj Tripp ARNP [Primary Care Provider] - Patient Disposition: Home, Self-Care Prognosis: Good Rehab Potential: Good I certify that the patient requires SNF services: No Overall status at discharge: patient is back to baseline Discharge Orders: Discharge Order (Routine); Ordered 05/30/22 Ordered By: Real Ye
[2022-05-30] MEDS: ONDANSETRON 4 MG/2 ML VIAL IV PRN (13:24)
[2022-05-31 07:15] LABS: Vitamin B1-SO 117 nmol/L (78-185)
== END 2022-05-30 14:51 | disposition home or self-care (01) | DRG 683 ==
LOC: ED 15:47 → MEDSUR 21:57
PROVIDERS: ADMIT Internal Medicine; ATTEND Internal Medicine